=== PATIENT | female | born 1930 ===

== ENCOUNTER 2017-10-25 16:08 | Inpatient (IN) | payer MEDICARE, MEDICAID ==
[2017-10-25 16:13] VITALS: BMI 21.4
--- NOTE | 2017-10-25 16:36 | ED PDOC ---
Arrival/HPI - General Time Seen by Provider: 10/25/17 16:13 - History of Present Illness Narrative History of Present Illness (Text): 10/25/17 16:35 Patient is an 87 y/o F with hx of arthritis, [place], pacemaker, on coumadin, presenting with body pain and abdominal pain. Daughter reports that patient always has chronic pain due to arthritis, but it worsened today, making her unable to walk to her PMD appt for INR check so she called 911. Reports that patient is scheduled to get enrolled in pacemaker program tomorrow. PMD: Dr. Noe Director Hris: Dr. Ambrose Family/Social History Family/Social History: No Known Family HX Allergies/Home Meds Allergies/Adverse Reactions: Allergies No Known Allergies Allergy (Verified 10/25/17 16:13) Home Medications: Home Meds Medication Instructions Recorded Confirmed Albuterol Sulfate [Proair Hfa] 0.09 mg IH Q4 PRN 10/25/17 10/25/17 Atorvastatin [Lipitor] 40 mg PO DIN 10/25/17 10/25/17 Clopidogrel [Plavix] 75 mg PO DAILY 10/25/17 10/25/17 Diltiazem HCl [Cartia Xt] 240 mg PO DAILY 10/25/17 10/25/17 Metoprolol Succinate [Toprol XL] 100 mg PO DAILY 10/25/17 10/25/17 Pantoprazole [Protonix] 40 mg PO DAILY 10/25/17 10/25/17 Ramipril [Altace] 2.5 mg PO DAILY 10/25/17 10/25/17 Warfarin [Coumadin] 2 mg PO 1800 10/25/17 10/25/17 Review of Systems - Physician Review All systems were reviewed & negative as marked: Yes - Review of Systems Constitutional: Fatigue Respiratory: absent: SOB, Cough, Sputum, Wheezing Cardiovascular: Chest Pain (R sided rib pain). absent: Palpitations, Orthopnea Gastrointestinal: Abdominal Pain. absent: Nausea, Vomiting Genitourinary Female: absent: Dysuria Musculoskeletal: Arthralgias Physical Exam Vital Signs Temp Pulse Resp BP Pulse Ox 10/25/17 20:19 78 18 140/86 99 10/25/17 16:22 98.5 F 71 18 136/86 98 Temperature: Afebrile Blood Pressure: Normal Pulse: Regular Respiratory Rate: Normal Appearance: Positive for: Well-Appearing, Non-Toxic, Comfortable Pain Distress: None Mental Status: Positive for: Alert and Oriented X 3 - Systems Exam Head: Present: Atraumatic, Normocephalic Pupils: Present: PERRL Mouth: Present: Moist Mucous Membranes Neck: Present: Normal Range of Motion Respiratory/Chest: Present: Clear to Auscultation, Good Air Exchange, Tender to Palpation (R ribs). No: Respiratory Distress Cardiovascular: Present: Regular Rate and Rhythm, Normal S1, S2. No: Murmurs Abdomen: Present: Tenderness (R side) Upper Extremity: Present: Normal Inspection Lower Extremity: Present: Normal Inspection, Other (moving extremities x 4) Psychiatric: Present: Alert, Oriented x 3 Medical Decision Making ED Course and Treatment: 10/25/17 16:38 EKG shows paced rhythm at 74bpm 10/25/17 19:18 Radiology called and reports that patient has pelvic mass with hypodensities in liver, concerning for cancer with metastaiss. Unable to ambulate due to generalized fatigue. Will admit to [facility]. Resident aware 10/25/17 19:25 CT chest, abdomen, and pelvis with IV contrast Indication: R chest wall pain, abdominal pain Technique: Contiguous axial images of the chest, abdomen, and pelvis. Coronal and Sagittal reformats generated and reviewed. This CT exam was performed using 1 or more of the following dose reduction techniques: Automated exposure control, adjustment of the MAA and/or kV according to patient size, and/or use of iterative reconstruction technique. Oral contrast was administered. 100 cc omnipaque 350 mg injected. Radiation dose: Total exam DLP = 504.57 MGy-cm. Comparison: None available Findings: Visualized portions of the inferior thyroid gland appear unremarkable. The mediastinal and hilar vascular structures appear within normal limits. Cardiomegaly. Dense coronary artery calcifications. Dual lead left-sided pacemaker. Small right pleural effusion with associated compressive hyperdensity noted of unclear significance. No pneumothorax. Punctate right lower lobe calcified granuloma. Heterogeneous hepatic parenchyma innumerable hepatic hypodense masses worrisome for metastases. Cholecystectomy. Mild bilateral adrenal gland nodular hypertrophy. The spleen appears unremarkable. The kidneys enhance symmetrically. No evidence of hydronephrosis or obstructing calculus. Bilateral renal atrophy and scarring. The stomach is nondistended. The bowel loops appear within normal limits of caliber without evidence of intestinal obstruction. There is no definite free air. Moderate to severe diffuse constipation. The appendix appears within normal limits of caliber. No secondary signs of acute appendicitis. 7.1 x 5.1 cm left pelvic cystic lesion with associated 6 mm calcification ; ovarian cystic neoplasm is not excluded. Uterus is present and appears atrophic. The urinary bladder appears unremarkable. There is decreased mineralization of the bones, most likely representing osteoporosis. Rarely, underlying metabolic bone disease or infiltrative lesions can also have this appearance. Degenerative changes. T9 compression fracture deformity, age indeterminate. Impression: Small right pleural effusion with associated compressive appearing hyperdensity noted of unclear significance. Heterogeneous hepatic parenchyma innumerable hepatic hypodense masses worrisome for metastases. Moderate to severe diffuse constipation. 7.1 x 5.1 cm left pelvic cystic lesion with associated 6 mm calcification ; ovarian cystic neoplasm is not excluded. There is decreased mineralization of the bones, most likely representing osteoporosis. Rarely, underlying metabolic bone disease or infiltrative lesions can also have this appearance. Osseous metastases are not excluded ; correlate clinically and suggest nuclear medicine bone scan if indicated. T9 compression fracture deformity, age indeterminate. Additional findings as above. Findings discussed with Dr. Lala on 10/25/17 at 7:09 p.m. - Lab Interpretations Lab Results: 10/25/17 17:20 10/25/17 17:20 Lab Results 10/25/17 17:20: PT 37.3 H, INR 3.34 H, APTT 44.5 H 10/25/17 17:20: Sodium 140, Potassium 3.8, Chloride 102, Carbon Dioxide 29, Anion Gap 13, BUN 30 H, Creatinine 0.9, Est GFR ( Amer) > 60, Est GFR ( Non-Af Amer) 59, Random Glucose 100, Calcium 9.8, Phosphorus 4.0, Magnesium 1.9 , Total Bilirubin 0.6, AST 38 H, ALT 33, Alkaline Phosphatase 165 H, Troponin I < 0.01, Total Protein 7.9, Albumin 3.7, Globulin 4.2, Albumin/Globulin Ratio 0.9 L, Lipase 344 H 10/25/17 17:20: WBC 11.6 H, RBC 3.42 L, Hgb 10.1 L, Hct 31.9 L, MCV 93.3, MCH 29.5, MCHC 31.7, RDW 15.2 H, Plt Count 256, MPV 9.8, Gran % 74.5 H, Lymph % ( Auto) 13.1 L, [place] % (Auto) 11.8 H, Eos % (Auto) 0.5 L, Baso % (Auto) 0.1, Gran # 8.63 H, Lymph # 1.5, [place] # 1.4 H, Eos # 0.1, Baso # 0.01 10/25/17 16:46: POC Glucose (mg/dL) 103 I have reviewed the lab results: Yes - RAD Interpretation Radiology Orders: 10/25/17 16:33 CHEST PORTABLE [RAD] Stat 10/25/17 17:59 CHEST,ABD,PEL W/IV CONT ONLY [CT] Stat - Medication Orders Current Medication Orders: Albuterol Sulfate (Albuterol 0.5% Inhal Sonia (2.5 Mg/0.5 Ml) Ud) 2.5 mg IH Q4H PRN PRN Reason: Shortness of Breath Atorvastatin Calcium (Lipitor) 40 mg PO DIN PRATIK Clopidogrel Bisulfate (Plavix) 75 mg PO DAILY PRATIK Diltiazem HCl (Cardizem Cd) 240 mg PO DAILY PRATIK Metoprolol Succinate (Toprol Xl) 100 mg PO DAILY PRATIK Ondansetron HCl (Zofran Inj) 4 mg IVP STAT PRN PRN Reason: Nausea/Vomiting Pantoprazole Sodium (Protonix Ec Tab) 40 mg PO DAILY PRATIK Ramipril (Altace) 2.5 mg PO DAILY PRATIK Warfarin Sodium (Coumadin) 1 mg PO 1800 PRATIK PRN Reason: Protocol Discontinued Medications Docusate Sodium (Colace) 100 mg PO STAT PRATIK Stop: 10/25/17 21:01 Morphine Sulfate (Morphine) 4 mg IVP STAT STA Stop: 10/25/17 16:38 Last Admin: 10/25/17 17:17 Dose: 4 mg MAR Pain Assessment Document 10/25/17 17:17 [facility] (Rec: 10/25/17 17:17 [id number] Pain Reassessment Is this a pain reassessment? No IVP Administration Document 10/25/17 17:17 [facility] (Rec: 10/25/17 17:17 [id number] Charges for Administration # of IVP Administrations 1 Re-Assess: MAR Pain Assessment Document 10/25/17 18:17 [facility] (Rec: 10/25/17 19:08 [facility]-[id number]) Pain Reassessment Is this a pain reassessment? Yes Sleep Is patient sleeping during reassessment? No Presence of Pain Presence of Pain Yes Disposition/Present on Arrival - Present on Arrival Any Indicators Present on Arrival: No - Disposition Have Diagnosis and Disposition been Completed?: Yes Diagnosis: Pelvic mass, Intractable pain, Fatigue Disposition: HOSPITALIZED Disposition Time: 19:26 Patient Plan: Admission Patient Problems: Current Active Problems Problem Status Onset Fatigue Acute Intractable pain Acute Pelvic mass Acute Condition: FAIR
[2017-10-25] MEDS ORDERED: Morphine 4 mg/ml ISec IVP STA (16:37)
[2017-10-25 17:44] LABS: BASO # 0.01 K/mm3 (0.0-2.0); BASO % 0.1 % (0.0-3.0); EOS # 0.1 (0.0-0.7); EOS % 0.5 % (1.5-5.0); GRAN # 8.63 (1.4-6.5); GRAN % 74.5 % (50.0-68.0); HEMATOCRIT 31.9 % (36.0-48.0); LYMPH # 1.5 (1.2-3.4); LYMPH % 13.1 % (22.0-35.0); MEAN CELL VOLUME 93.3 fl (80.0-105.0); MEAN CORPUSCULAR HEMOGLOBIN 29.5 pg (25.0-35.0); MEAN CORPUSCULAR HGB CONC 31.7 g/dl (31.0-37.0); MEAN PLATELET VOLUME 9.8 fl (7.0-11.0); MONO # 1.4 (0.1-0.6); MONO % 11.8 % (1.0-6.0); RED CELL DISTRIBUTION WIDTH 15.2 % (11.5-14.5); WHITE BLOOD COUNT 11.6 10^3/ul (4.5-11.0)
[2017-10-25 17:47] LABS: ALB/GLOB RATIO 0.9 (1.1-1.8); ALKALINE PHOSPHATASE 165 U/L (38-126); ALT/SGPT 33 U/L (7-56); AST/SGOT 38 U/L (14-36); BILIRUBIN,TOTAL 0.6 mg/dL (0.2-1.3); BLOOD UREA NITROGEN 30 mg/dL (7-21); CALCIUM 9.8 mg/dL (8.4-10.5); CARBON DIOXIDE 29 mmol/L (21-33); CHLORIDE 102 mmol/L (98-107); GFR AFRICAN-AMERICAN > 60; GLUCOSE,RANDOM 100 mg/dL (70-110); INR 3.34 (0.93-1.08); LIPASE 344 U/L (23-300); MAGNESIUM 1.9 mg/dL (1.7-2.2); PARTIAL THROMBOPLASTIN TIME 44.5 Seconds (25.1-36.5); POTASSIUM 3.8 mmol/L (3.6-5.0); SODIUM 140 mmol/L (132-148); TOTAL PROTEIN 7.9 g/dL (5.8-8.3)
[2017-10-25 17:57] LABS: TROPONIN I < 0.01 ng/mL
--- NOTE | 2017-10-25 18:00 | CARD ---
APPROVED REPORT EKG Measurement Heart [id number] <Conclusion> Electronic ventricular pacemaker
[2017-10-25] MEDS ORDERED: Iohexol 350 MG/100 ML VIAL ONE (18:09)
--- NOTE | 2017-10-25 19:24 | CT ---
CT chest, abdomen, and pelvis with IV contrast Indication: R chest wall pain, abdominal pain Technique: Contiguous axial images of the chest, abdomen, and pelvis. Coronal and Sagittal reformats generated and reviewed. This CT exam was performed using 1 or more of the following dose reduction techniques: Automated exposure control, adjustment of the MAA and/or kV according to patient size, and/or use of iterative reconstruction technique. Oral contrast was administered. 100 cc omnipaque 350 mg injected. Radiation dose: Total exam DLP = 504.57 MGy-cm. Comparison: None available Findings: Visualized portions of the inferior thyroid gland appear unremarkable. The mediastinal and hilar vascular structures appear within normal limits. Cardiomegaly. Dense coronary artery calcifications. Dual lead left-sided pacemaker. Small right pleural effusion with associated compressive hyperdensity noted of unclear significance. No pneumothorax. Punctate right lower lobe calcified granuloma. Heterogeneous hepatic parenchyma innumerable hepatic hypodense masses worrisome for metastases. Cholecystectomy. Mild bilateral adrenal gland nodular hypertrophy. The spleen appears unremarkable. The kidneys enhance symmetrically. No evidence of hydronephrosis or obstructing calculus. Bilateral renal atrophy and scarring. The stomach is nondistended. The bowel loops appear within normal limits of caliber without evidence of intestinal obstruction. There is no definite free air. Moderate to severe diffuse constipation. The appendix appears within normal limits of caliber. No secondary signs of acute appendicitis. 7.1 x 5.1 cm left pelvic cystic lesion with associated 6 mm calcification ; ovarian cystic neoplasm is not excluded. Uterus is present and appears atrophic. The urinary bladder appears unremarkable. There is decreased mineralization of the bones, most likely representing osteoporosis. Rarely, underlying metabolic bone disease or infiltrative lesions can also have this appearance. Degenerative changes. T9 compression fracture deformity, age indeterminate. Impression: Small right pleural effusion with associated compressive appearing hyperdensity noted of unclear significance. Heterogeneous hepatic parenchyma innumerable hepatic hypodense masses worrisome for metastases. Moderate to severe diffuse constipation. 7.1 x 5.1 cm left pelvic cystic lesion with associated 6 mm calcification ; ovarian cystic neoplasm is not excluded. There is decreased mineralization of the bones, most likely representing osteoporosis. Rarely, underlying metabolic bone disease or infiltrative lesions can also have this appearance. Osseous metastases are not excluded ; correlate clinically and suggest nuclear medicine bone scan if indicated. T9 compression fracture deformity, age indeterminate. Additional findings as above. Findings discussed with Dr. Lala on 10/25/17 at 7:09 p.m.
[2017-10-25] MEDS ORDERED: Albuterol 0.5% Inhal Sol (2.5 mg/0.5 ml) UD IH PRN (20:07)
--- NOTE | 2017-10-25 20:18 | CP.PCM.HP ---
History of Present Illness - History of Present Illness History of Present Illness: CC: Weakness, fatigue HPI: Patient is an 87 year old female with past medical history of arthritis, [place] , CAD, pacemaker, on anticoagulation with coumadin who presents via ambulance for generalized weakness and fatigue. Per chart review and handoff patient had worsening of her chronic pain secondary to her chronic arthritis that inhibited her ability to walk to her PMD office visit for her INR check. Patient called [address] [facility] [place]. Patient is noted to be poor historian with tangential speech and non specific answers regarding questioning and repeat questioning. Patient reports for the past year she has been experiencing body pains most notably hip and lower/mid back pain. Patient reports poor appetite without nausea and vomiting for some time now. Along with her general weakness and fatigue the patient reports small irregular bowel movements. Patient reports regular bowel movement the AM of presentation. Patient denies shortness of breath, sharp abdominal pain, diarrhea, nausea, vomiting, fever, chills. PMH: Arthritis, [place], CAD, Pacemaker PSH: None SocHx: Tobacco: Former light smoker for few years, ETOH: denies, ID: Denies ALL: NKDA Meds: See JAN PMD: Dr. Noe Cardiology: Dr. Woody Ambrose Present on Admission - Present on Admission Any Indicators Present on Admission: No Review of Systems - Review of Systems Review of Systems: 12 point ROS benign otherwise mentioned in HPI Past Patient History - Past Social History Smoking Status: Former Smoker Alcohol: None Drugs: Denies - CARDIAC Hx Cardiac Disorders: Yes Hx Hypertension: Yes Hx Pacemaker: Yes - PULMONARY Hx Respiratory Disorders: No - PSYCHIATRIC Hx Substance Use: No - SURGICAL HISTORY Hx Surgeries: Yes Hx Coronary Stent: Yes Other/Comment: pacemaker - ANESTHESIA Hx Anesthesia: Yes Hx Anesthesia Reactions: No Hx Malignant Hyperthermia: No Meds Allergies/Adverse Reactions: Allergies Allergy/AdvReac Type Severity Reaction Status Date / Time No Known Allergies Allergy Verified 10/25/17 16:13 Physical Exam - Constitutional Appears: No Acute Distress - Head Exam Head Exam: ATRAUMATIC, NORMAL INSPECTION, NORMOCEPHALIC - Eye Exam Eye Exam: EOMI, PERRL. absent: Conjunctival injection, Scleral icterus - ENT Exam ENT Exam: Mucous Membranes Dry - Respiratory Exam Respiratory Exam: Clear to Auscultation Bilateral, NORMAL BREATHING PATTERN. absent: Rales, Rhonchi, Wheezes - Cardiovascular Exam Cardiovascular Exam: REGULAR RHYTHM, +S1, +S2 - GI/Abdominal Exam GI & Abdominal Exam: Hypoactive Bowel Sounds, Soft, Tenderness (RUQ). absent: Firm, Guarding - Extremities Exam Extremities exam: Positive for: pedal pulses present. Negative for: calf tenderness, pedal edema - Neurological Exam Neurological exam: Alert, Oriented x3 Additional comments: motor and sensory grossly intact - Psychiatric Exam Psychiatric exam: Normal Affect, Normal Mood Results - Vital Signs Recent Vital Signs: Last Vital Signs Temp 98.5 F 10/25/17 16:22 Pulse 71 10/25/17 16:22 Resp 18 10/25/17 16:22 BP 136/86 10/25/17 16:22 Pulse Ox 98 10/25/17 16:22 - Labs Result Diagrams: 10/26/17 06:30 10/26/17 06:30 Assessment & Plan - Assessment and Plan (Free Text) Assessment: Patient is an 87 year old female with past medical history of arthritis, [place], CAD , pacemaker, on anticoagulation with coumadin who presents via ambulance for generalized weakness and fatigue. Patient found to have pelvic mass with possible mets on Abdominal CT in ED. Will admit for further work up and evaluation. Plan: Abdominal Pain - Etiology: Constipation vs. mets from suspected pelvic with suspicion for neoplasm - mild leukocytosis, afebrile, VSS - Holding off antibiotics at this time - Abd CT findings: Pelvic mass with hypodensities in liver, concerning for cancer with metastasis, see report for full detail - Heme/Onc: Dr. Goel - PT/OT for difficulty with ambulation secondary to pain - Cardiac healthy diet - Miralax - Lipase 344 - Zofran prn Elevated INR - INR 3.34 - Repeat INR for AM - Patient reports taking coumadin 2mg for past few years after pacemaker placement - Efforts made to contact family regarding medical history - Will reduce Coumadin 1mg for tomorrow - Heme on board Anemia, Normocytic - H//H: 10.1/31.9 - Iron panel - VB12, Folate - CBC - Monitor Hx CAD - Plavix - Lipitor Hx of HTN -Metoprolol - Diltiazem GI ppx: Protonix DVT ppx: Theraputic INR, SCDs Case reviewed and discussed with attending - Date & Time Date: 10/25/17 Time: 20:37
[2017-10-26 07:20] LABS: BASO # 0.02 K/mm3 (0.0-2.0); BASO % 0.2 % (0.0-3.0); EOS # 0.1 (0.0-0.7); EOS % 0.6 % (1.5-5.0); GRAN # 8.25 (1.4-6.5); GRAN % 76.3 % (50.0-68.0); HEMATOCRIT 31.3 % (36.0-48.0); LYMPH # 1.3 (1.2-3.4); MEAN CELL VOLUME 93.7 fl (80.0-105.0); MEAN PLATELET VOLUME 9.6 fl (7.0-11.0); MONO # 1.2 (0.1-0.6); MONO % 10.9 % (1.0-6.0); RED CELL DISTRIBUTION WIDTH 15.4 % (11.5-14.5); WHITE BLOOD COUNT 10.8 10^3/ul (4.5-11.0)
[2017-10-26 07:35] LABS: IRON 39 ug/dL (45-180)
--- NOTE | 2017-10-26 07:55 | RAD ---
HISTORY: chest pain COMPARISON: No prior. FINDINGS: LUNGS: No active pulmonary disease. PLEURA: No significant pleural effusion identified, no pneumothorax apparent. CARDIOVASCULAR: Normal. OSSEOUS STRUCTURES: No significant abnormalities. VISUALIZED UPPER ABDOMEN: Normal. OTHER FINDINGS: Dual lead pacemaker IMPRESSION: No active disease.
[2017-10-26 08:00] LABS: ALB/GLOB RATIO 0.9 (1.1-1.8); ALKALINE PHOSPHATASE 144 U/L (38-126); ALT/SGPT 33 U/L (7-56); AST/SGOT 50 U/L (14-36); BILIRUBIN,TOTAL 0.4 mg/dL (0.2-1.3); BLOOD UREA NITROGEN 25 mg/dL (7-21); CARBON DIOXIDE 31 mmol/L (21-33); CHLORIDE 100 mmol/L (98-107); GFR AFRICAN-AMERICAN > 60; GLUCOSE,RANDOM 94 mg/dL (70-110); POTASSIUM 4.1 mmol/L (3.6-5.0); SODIUM 140 mmol/L (132-148); TOTAL PROTEIN 7.6 g/dL (5.8-8.3)
[2017-10-26 08:12] LABS: INR 2.74 (0.93-1.08); PARTIAL THROMBOPLASTIN TIME 38.5 Seconds (25.1-36.5)
[2017-10-26] MEDS ORDERED: POLYETHYLENE GLYCOL 3350 17 GM/Dose PACKET PO SCH (10:00)
[2017-10-26] MEDS: Pantoprazole 40 mg EC Tab PO SCH (10:33)
[2017-10-26] MEDS: Metoprolol Succinate 100 mg XL Tab PO SCH (10:33)
[2017-10-26] MEDS: diltiaZEM 240 mg/24 Hours CD Cap PO SCH (10:33)
[2017-10-26] MEDS ORDERED: Phytonadione 10 mg/ml Inj (Adult) SC ONE (11:08)
--- NOTE | 2017-10-26 13:13 | CON ---
DATE: 10/26/2017 REASON FOR CONSULT: Suspected malignancy, multiple liver nodules as well as an ovarian mass. HISTORY OF PRESENT ILLNESS: The patient is an 87-year-old female with past medical history significant for history of arthritis, [place], coronary artery disease, pacemaker placement and on anticoagulation who presented to the emergency room with complaints of generalized weakness and fatigue. She also has been having more abdominal pain and back pain, which she has been experiencing for the last several months and it has been worsening. Her appetite is also decreased. She also thinks she has lost some weight, but unable to quantify her much. She denies any diarrhea, constipation or any other GI symptoms. She has no prior history of any malignancy. She denies any fever, chills or night sweats as well. SOCIAL HISTORY: Negative for any smoking. No alcohol use or drug abuse. FAMILY HISTORY: Noncontributory. ALLERGIES: SHE HAS NO KNOWN ALLERGIES. MEDICATIONS: As per the MAR. REVIEW OF SYSTEMS: As per the HPI. PHYSICAL EXAMINATION: VITAL SIGNS: Reveal a temperature of 97.6, pulse of 87, respiratory rate of 20, and a blood pressure of 162/73. GENERAL: The patient is a elderly pleasant female, lying in bed, in no acute distress. HEENT: Head and neck; normocephalic and atraumatic. Eyes; pupils equal, round, reactive to light and accommodation. Extraocular muscles are intact. There is pallor. No icterus is noted. NECK: Supple with no adenopathy. No JVD. No thyromegaly. LUNGS: Clear to auscultation bilaterally with no rales or rhonchi. CARDIOVASCULAR: S1, S2 is heard. ABDOMEN: Positive tenderness, diffuse. She does have palpable ascites. There is a large left pelvic cystic lesion that is palpable. EXTREMITIES: There is no edema. LABORATORY DATA: Reveal anemia with a hemoglobin 9.7. She does have a large pelvic mass on the CT, 7.5 x 5.1 cm on the left side. She also has multiple hypodense masses in her liver. There is also [id number] constipation, T9 compression fracture is also noted. 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 Check CA-125, CEA. We will arrange for CT-guided liver biopsy with Dr. Woody Blanco. Also, we will discussed with the patient's family regarding suspected diagnosis and further treatment plan based on final pathology. Thank you for the consult. We will follow. Shasta Quintero MD
[2017-10-26 13:29] LABS: FOLATE > 20.0 ng/mL
--- NOTE | 2017-10-26 14:10 | CP.PCM.PN ---
Subjective - Date & Time of Evaluation Date of Evaluation: 10/26/17 Time of Evaluation: 07:30 - Subjective Subjective: Patient seen and examined at bedside. No acute events reported overnight. Patient reports continued abdominal and back discomfort. Patient states back pain and weakness are chronic issues. Patient continues to be limited historian with limited insight on her medical conditions. Patient denies shortness of breath, stabbing chest pain/abdominal pain, nausea, vomiting, fever, chills. Objective - Vital Signs/Intake and Output Vital Signs (last 24 hours): Temp Pulse Resp BP Pulse Ox 97.6 F 87 21 162/74 H 95 10/26/17 07:30 10/26/17 10:33 10/26/17 07:30 10/26/17 10:33 10/26/17 07:30 Intake and Output: 10/26/17 10/26/17 06:59 18:59 Intake Total 240 Output Total 200 Balance 40 - Medications Medications: Current Medications Albuterol Sulfate (Albuterol 0.5% Inhal Sonia (2.5 Mg/0.5 Ml) Ud) 2.5 mg IH Q4H PRN PRN Reason: Shortness of Breath Atorvastatin Calcium (Lipitor) 40 mg PO DIN PRATIK Diltiazem HCl (Cardizem Cd) 240 mg PO DAILY [facility] Last Admin: 10/26/17 10:33 Dose: 240 mg Sodium Chloride (Sodium Chloride 0.9%) 1,000 mls @ 100 mls/hr IV .Q10H [facility] Metoprolol Succinate (Toprol Xl) 100 mg PO DAILY [facility] Last Admin: 10/26/17 10:33 Dose: 100 mg Ondansetron HCl (Zofran Inj) 4 mg IVP STAT PRN PRN Reason: Nausea/Vomiting Pantoprazole Sodium (Protonix Ec Tab) 40 mg PO DAILY [facility] Last Admin: 10/26/17 10:33 Dose: 40 mg Phytonadione (Vitamin K Inj) 10 mg SC ONCE ONE Stop: 10/27/17 08:01 Polyethylene Glycol (Miralax) 17 gm PO BID PRATIK Ramipril (Altace) 2.5 mg PO DAILY [facility] Last Admin: 10/26/17 10:32 Dose: 2.5 mg Trazodone HCl (Desyrel) 50 mg PO HS [facility] Warfarin Sodium (Coumadin) 1 mg PO 1800 PRATIK PRN Reason: Protocol - Labs Labs: 10/26/17 06:30 10/26/17 06:30 PT 30.8 SECONDS (9.4-12.5) H 10/26/17 06:30 INR 2.74 (0.93-1.08) H 10/26/17 06:30 APTT 38.5 Seconds (25.1-36.5) H 10/26/17 06:30 - Constitutional Appears: Non-toxic, No Acute Distress - Head Exam Head Exam: ATRAUMATIC, NORMAL INSPECTION, NORMOCEPHALIC - Eye Exam Eye Exam: EOMI, PERRL - ENT Exam ENT Exam: Mucous Membranes Moist - Respiratory Exam Respiratory Exam: NORMAL BREATHING PATTERN Assessment and Plan - Assessment and Plan (Free Text) Assessment: Patient is an 87 year old female with past medical history of arthritis, [place], CAD , pacemaker, on anticoagulation with coumadin who presents via ambulance for generalized weakness and fatigue. Patient found to have pelvic mass with possible mets on Abdominal CT in ED. Will admit for further work up and evaluation. Plan: Abdominal Pain - Etiology: Constipation vs. mets from suspected ovarian malignancy - WBC nml, afebrile, VSS - Abd CT findings: Pelvic mass with hypodensities in liver, concerning for cancer with metastasis, see report for full detail - Heme/Onc: Dr. Goel - check CA 125, CEA - CT guided biopsy with Dr. Woody Blanco - discussion with family regarding suspected dx - IR consult with Dr. Woody Blanco, appreciate recs - [employer] consult with Dr. 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 Sorensen consulted, appreciate recs - PT/OT for difficulty with ambulation secondary to pain Compression fracture T9 - CT/ABD showing compression fracture T9 - Pain distribution related to findings on abd/pelvis CT - Bone scan - full for osteoporosis, compression fracture at T9 Atrial Fibrillation - INR 1.66 - Repeat INR - Holding coumadin for potential procedures per Cardio - Heme on board Anemia, Normocytic - Likely anemia of chronic disease - Vb12 wnl, Folate wnl Hx CAD - Holding plavix at this time - Lipitor Hx of HTN - Metoprolol - Diltiazem Hx of GERD - Protonix - monitor GI ppx: Protonix DVT ppx: Theraputic INR, SCDs Case reviewed and discussed with attending
[2017-10-26] MEDS: POLYETHYLENE GLYCOL 3350 17 GM/Dose PACKET PO SCH (17:06)
[2017-10-26] MEDS: Sodium Chloride 0.9% 1,000 ML IV SCH ×2 (17:06→21:55)
--- NOTE | 2017-10-27 00:26 | CON ---
DATE: 10/26/2017 CARDIOLOGY FOLLOWUP HISTORY: The patient is a 87-year-old woman who presented with abdominal pain and weakness. The patient's weakness continued until she was unable to walk. PAST MEDICAL HISTORY: The patient's past medical history includes a history of pacemaker. She has had multivessel PTCA and stent in the past, the last one was 2008. She also suffers from hypercholesterolemia. SOCIAL HISTORY: The patient does not smoke. REVIEW OF SYSTEMS: Review of systems is dominated by diffuse weakness. No chest pain noted. PHYSICAL EXAMINATION: VITAL SIGNS: Blood pressure 162/74, heart rate in the 80s. NECK: Negative JVD. LUNGS: Decreased breath sounds. HEART: With S1, S2. EXTREMITIES: Without edema. LABORATORY DATA: BUN and creatinine are unremarkable. Troponin is negative x1. The hemoglobin is 9.7. IMAGING: CT scan of the abdomen results are noted. IMPRESSION: 1. Diffuse weakness. 2. Marked anemia. 3. History of percutaneous transluminal coronary angioplasty and stent. 4. History of pacemaker. 5. Abnormalities on CT scan of liver, suspicious for carcinoma. Given these findings, the patient's INR is 2.74 which she has been treated for her atrial fibrillation. We will need to hold her Coumadin in preparation for potential biopsy. Woody Ambrose MD
[2017-10-27] MEDS: Sodium Chloride 0.9% 1,000 ML IV SCH (05:38)
[2017-10-27 06:21] LABS: BASO # 0.02 K/mm3 (0.0-2.0); BASO % 0.2 % (0.0-3.0); EOS # 0.1 (0.0-0.7); EOS % 0.8 % (1.5-5.0); GRAN # 7.87 (1.4-6.5); GRAN % 75.9 % (50.0-68.0); HEMATOCRIT 30.8 % (36.0-48.0); LYMPH # 1.3 (1.2-3.4); LYMPH % 12.2 % (22.0-35.0); MEAN CELL VOLUME 93.9 fl (80.0-105.0); MEAN CORPUSCULAR HEMOGLOBIN 29.6 pg (25.0-35.0); MEAN CORPUSCULAR HGB CONC 31.5 g/dl (31.0-37.0); MEAN PLATELET VOLUME 9.4 fl (7.0-11.0); MONO # 1.1 (0.1-0.6); MONO % 10.9 % (1.0-6.0); RED CELL DISTRIBUTION WIDTH 15.2 % (11.5-14.5); WHITE BLOOD COUNT 10.4 10^3/ul (4.5-11.0)
[2017-10-27 07:01] LABS: INR 1.66 (0.93-1.08)
[2017-10-27 07:25] LABS: ALB/GLOB RATIO 0.8 (1.1-1.8); ALKALINE PHOSPHATASE 139 U/L (38-126); ALT/SGPT 25 U/L (7-56); AST/SGOT 42 U/L (14-36); BILIRUBIN,TOTAL 0.7 mg/dL (0.2-1.3); BLOOD UREA NITROGEN 23 mg/dL (7-21); CALCIUM 9.7 mg/dL (8.4-10.5); CARBON DIOXIDE 28 mmol/L (21-33); CHLORIDE 101 mmol/L (98-107); GFR AFRICAN-AMERICAN > 60; GLUCOSE,RANDOM 107 mg/dL (70-110); POTASSIUM 4.4 mmol/L (3.6-5.0); SODIUM 137 mmol/L (132-148); TOTAL PROTEIN 7.5 g/dL (5.8-8.3)
[2017-10-27] MEDS ORDERED: Phytonadione 10 mg/ml Inj (Adult) SC ONE (08:00)
[2017-10-27] MEDS: Pantoprazole 40 mg EC Tab PO SCH ×2 (08:04→10:00)
[2017-10-27] MEDS: POLYETHYLENE GLYCOL 3350 17 GM/Dose PACKET PO SCH ×3 (09:02→18:16)
[2017-10-27] MEDS: diltiaZEM 240 mg/24 Hours CD Cap PO SCH (09:03)
[2017-10-27] MEDS: Metoprolol Succinate 100 mg XL Tab PO SCH (09:09)
--- NOTE | 2017-10-27 11:53 | CP.PCM.PN ---
Subjective - Date & Time of Evaluation Date of Evaluation: 10/27/17 Time of Evaluation: 09:30 - Subjective Subjective: PGY [address] WEBER/DR. WILL Patient seen and evaluated this AM. No acute events overnight. Patient reports continued mild abdominal discomfort. Patient denies chest pain, shortness of breath, n/v/f/c. Patient endorses constipation without bm for past 2 days. Patient reports chronic issue with bowel movement. patient awaiting further work up for ovarian/pelvic mass. Objective - Vital Signs/Intake and Output Vital Signs (last 24 hours): Temp Pulse Resp BP Pulse Ox 98.2 F 80 20 130/85 97 10/27/17 08:00 10/27/17 09:09 10/27/17 08:00 10/27/17 09:09 10/27/17 08:00 Intake and Output: 10/27/17 10/27/17 06:59 18:59 Intake Total 180 Output Total 200 Balance -20 - Medications Medications: Current Medications Albuterol Sulfate (Albuterol 0.5% Inhal Sonia (2.5 Mg/0.5 Ml) Ud) 2.5 mg IH Q4H PRN PRN Reason: Shortness of Breath Atorvastatin Calcium (Lipitor) 40 mg PO DIN [facility] Last Admin: 10/26/17 17:05 Dose: 40 mg Diltiazem HCl (Cardizem Cd) 240 mg PO DAILY [facility] Last Admin: 10/27/17 09:03 Dose: 240 mg Sodium Chloride (Sodium Chloride 0.9%) 1,000 mls @ 100 mls/hr IV .Q10H [facility] Last Admin: 10/27/17 05:38 Dose: Not Given Metoprolol Succinate (Toprol Xl) 100 mg PO DAILY [facility] Last Admin: 10/27/17 09:09 Dose: 100 mg Ondansetron HCl (Zofran Inj) 4 mg IVP STAT PRN PRN Reason: Nausea/Vomiting Pantoprazole Sodium (Protonix Ec Tab) 40 mg PO DAILY [facility] Last Admin: 10/27/17 08:04 Dose: 40 mg Polyethylene Glycol (Miralax) 17 gm PO TID [facility] Ramipril (Altace) 2.5 mg PO DAILY [facility] Last Admin: 10/27/17 09:09 Dose: 2.5 mg Trazodone HCl (Desyrel) 50 mg PO HS [facility] Last Admin: 10/26/17 21:57 Dose: 50 mg - Labs Labs: 10/27/17 06:00 10/27/17 06:00 PT 18.5 SECONDS (9.4-12.5) H 10/27/17 06:00 INR 1.66 (0.93-1.08) H 10/27/17 06:00 APTT 38.5 Seconds (25.1-36.5) H 10/26/17 06:30 - Constitutional Appears: No Acute Distress - Head Exam Head Exam: ATRAUMATIC, NORMAL INSPECTION, NORMOCEPHALIC - Eye Exam Eye Exam: EOMI, PERRL - ENT Exam ENT Exam: Mucous Membranes Moist - Respiratory Exam Respiratory Exam: Clear to Ausculation Bilateral, NORMAL BREATHING PATTERN - Cardiovascular Exam Cardiovascular Exam: REGULAR RHYTHM, +S1, +S2 - GI/Abdominal Exam GI & Abdominal Exam: Soft, Tenderness, Diminished Bowel Sounds. absent: Firm, Guarding - Extremities Exam Extremities Exam: absent: Pedal Edema, Tenderness - Back Exam Back Exam: NORMAL INSPECTION - Neurological Exam Neurological Exam: Alert, Awake, Oriented x3 - Psychiatric Exam Psychiatric exam: Normal Affect, Normal Mood - Skin Skin Exam: Dry, Intact Assessment and Plan - Assessment and Plan (Free Text) Assessment: Patient is an 87 year old female with past medical history of arthritis, [place], CAD , pacemaker, on anticoagulation with coumadin who presents via ambulance for generalized weakness and fatigue. Patient found to have pelvic mass with possible mets on Abdominal CT in ED. Patient admitted for further work up. Plan: Abdominal Pain - Etiology: Constipation vs. mets from suspected ovarian malignancy - Abd CT findings: Pelvic mass with hypodensities in liver, concerning for cancer with metastasis, see report for full detail - Heme/Onc: Dr. Goel - check CA 125 wnl, CEA wnl - CT guided biopsy with Dr. Woody Blanco - discussion with family regarding suspected dx - IR consult with Dr. 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 Sorensen consulted, appreciate recs - PT/OT for difficulty with ambulation secondary to pain - increase miralax for constipation, consider enema Compression fracture T9 - CT/ABD showing compression fracture T9 - Pain distribution related to findings on abd/pelvis CT - Bone scan - full for osteoporosis, compression fracture at T9, scan done today , f/u final report Atrial Fibrillation - Repeat INR - Holding coumadin for potential procedures per Cardio - Heme on board Anemia, Normocytic - Likely anemia of chronic disease - Vb12 wnl, Folate wnl Hx CAD - Holding plavix at this time - Lipitor Hx of HTN - Metoprolol - Diltiazem Hx of GERD - Protonix - monitor GI ppx: Protonix DVT ppx: Theraputic INR, SCDs Case reviewed and discussed with attending
--- NOTE | 2017-10-27 13:09 | PN ---
DATE: 10/27/2017 CARDIOLOGY FOLLOWUP SUBJECTIVE: The patient is comfortable in bed. Her abdominal pain is better. OBJECTIVE: VITAL SIGNS: Blood pressure is 130/61, the heart rate is in the 60s. NECK: Negative JVD. LUNGS: Without rales. HEART: With S1, S2. EXTREMITIES: Without edema. LABORATORIES: Hemoglobin is 9.7. Chemistries are unchanged. IMPRESSION: 1. Abdominal pain. 2. Anemia. 3. Stable angina. 4. History of percutaneous transluminal coronary angioplasty and stent. 5. History of pacemaker placement. PLAN: Given these findings, the patient's cardiac status is stable. Awaiting her GI workup. Woody Ambrose MD
--- NOTE | 2017-10-27 13:24 | CP.PCM.CON ---
<Nadine Cardenas - Last Filed: 10/27/17 13:46> History of Present Illness - History of Present Illness History of Present Illness: Seen and examined at bedside this afternoon, chart reviewed. Slovak speaking, applied researcher at beside, MIGDALIA Adams. Patient is poor historian. History obtained from nmedical staff and medical chart. Request for GI consult is for abdominal pain. HPI: This is an 87 year old female with a PMH of [place], CAD, pacemaker on Coumadin, came to the ER with complaints of fatigue and generalized weakness. Patient c/o of chronic pain unable to ambulate, history of arthritis, usually have blood work for INR, unable to go to PMD office. Patient complains of body aches, back pain and was complaining of abdominal pain as well. At the moment she does not have any abdominal pain, on admission patient had ct scan of abdomen and pelvis , found to have pelvic mass: 7.1x5.1 cm left pelvic cystic lesion w/6mm calcification. ovarian cystic neoplasm cannot be excluded. Moderate constipation , osteoporosis, and hepatic hypodense masses worrisome for metastasis. Patient denies having EGD or colon. Does have poor appetite, no N/V. When constipated may notice blood. Denies anything recent. INR on admission 3, s/p Vitamin K. PMH: Arthritis, Pacemaker, CAD, [place] PSH: denies Family HX: denies Allergies: NKDA MEDS: reviewed as per [facility] Social HX: former tobacco use, denies ETOH/Drugs ROS: systems reviewed with positive findings, see [facility] Past Patient History - Past Social History Smoking Status: Former Smoker Alcohol: None Drugs: Denies - CARDIAC Hx Cardiac Disorders: Yes Hx Hypertension: Yes Hx Pacemaker: Yes - PULMONARY Hx Respiratory Disorders: No - NEUROLOGICAL Hx Neurological Disorder: No - HEENT Other/Comment: hard of hearing - ENDOCRINE/METABOLIC Hx Endocrine Disorders: No - HEMATOLOGICAL/ONCOLOGICAL Hx Blood Disorders: No - MUSCULOSKELETAL/RHEUMATOLOGICAL Hx Arthritis: Yes - GASTROINTESTINAL Hx Gastrointestinal Disorders: No - GENITOURINARY/GYNECOLOGICAL Hx Genitourinary Disorders: No - PSYCHIATRIC Hx Substance Use: No - SURGICAL HISTORY Hx Surgeries: Yes Hx Coronary Stent: Yes Other/Comment: pacemaker - ANESTHESIA Hx Anesthesia: Yes Hx Anesthesia Reactions: No Hx Malignant Hyperthermia: No Meds Allergies/Adverse Reactions: Allergies Allergy/AdvReac Type Severity Reaction Status Date / Time No Known Allergies Allergy Verified 10/25/17 16:13 - Medications Medications: Current Medications Albuterol Sulfate (Albuterol 0.5% Inhal Sonia (2.5 Mg/0.5 Ml) Ud) 2.5 mg IH Q4H PRN PRN Reason: Shortness of Breath Atorvastatin Calcium (Lipitor) 40 mg PO DIN [facility] Last Admin: 10/26/17 17:05 Dose: 40 mg Diltiazem HCl (Cardizem Cd) 240 mg PO DAILY [facility] Last Admin: 10/27/17 09:03 Dose: 240 mg Sodium Chloride (Sodium Chloride 0.9%) 1,000 mls @ 100 mls/hr IV .Q10H [facility] Last Admin: 10/27/17 05:38 Dose: Not Given Metoprolol Succinate (Toprol Xl) 100 mg PO DAILY [facility] Last Admin: 10/27/17 09:09 Dose: 100 mg Ondansetron HCl (Zofran Inj) 4 mg IVP STAT PRN PRN Reason: Nausea/Vomiting Pantoprazole Sodium (Protonix Ec Tab) 40 mg PO DAILY [facility] Last Admin: 10/27/17 08:04 Dose: 40 mg Polyethylene Glycol (Miralax) 17 gm PO TID [facility] Ramipril (Altace) 2.5 mg PO DAILY [facility] Last Admin: 10/27/17 09:09 Dose: 2.5 mg Trazodone HCl (Desyrel) 50 mg PO HS [facility] Last Admin: 10/26/17 21:57 Dose: 50 mg Physical Exam - Constitutional Appears: No Acute Distress - Head Exam Head Exam: NORMOCEPHALIC - Eye Exam Eye Exam: Normal appearance. absent: Scleral icterus - ENT Exam ENT Exam: Mucous Membranes Moist - Neck Exam Neck exam: Positive for: Normal Inspection - Respiratory Exam Respiratory Exam: Decreased Breath Sounds, NORMAL BREATHING PATTERN. absent: Respiratory Distress - Cardiovascular Exam Cardiovascular Exam: +S1, +S2 - GI/Abdominal Exam GI & Abdominal Exam: Distended, Hypoactive Bowel Sounds, Soft. absent: Guarding , Rebound, Tenderness - Extremities Exam Extremities exam: Positive for: normal inspection, pedal pulses present. Negative for: calf tenderness, pedal edema - Neurological Exam Neurological exam: Alert, Oriented x3 - Skin Skin Exam: Dry, Warm Results - Vital Signs Recent Vital Signs: Last Vital Signs Temp 98.2 F 10/27/17 08:00 Pulse 80 10/27/17 09:09 Resp 20 10/27/17 08:00 BP 130/85 10/27/17 09:09 Pulse Ox 97 10/27/17 08:00 - Labs Result Diagrams: 10/27/17 06:00 10/27/17 06:00 Labs: Laboratory Results - last 24 hr 10/26/17 10/26/17 10/26/17 06:30 06:30 10:23 WBC RBC Hgb Hct MCV MCH MCHC RDW Plt Count MPV Gran % Lymph % (Auto) Bartholomew % (Auto) Eos % (Auto) Baso % (Auto) Gran # Lymph # Bartholomew # Eos # Baso # PT INR Sodium Potassium Chloride Carbon Dioxide Anion Gap BUN Creatinine Est GFR ( Amer) Est GFR (Non-Af Amer) Random Glucose Calcium Total Bilirubin AST ALT Alkaline Phosphatase Total Protein Albumin Globulin Albumin/Globulin Ratio CA 125 Antigen 16.5 Vitamin B12 329 Folate > 20.0 Procalcitonin 0.08 L 10/27/17 10/27/17 10/27/17 06:00 06:00 06:00 WBC 10.4 RBC 3.28 L Hgb 9.7 L Hct 30.8 L MCV 93.9 MCH 29.6 MCHC 31.5 RDW 15.2 H Plt Count 245 MPV 9.4 Gran % 75.9 H Lymph % (Auto) 12.2 L Bartholomew % (Auto) 10.9 H Eos % (Auto) 0.8 L Baso % (Auto) 0.2 Gran # 7.87 H Lymph # 1.3 Bartholomew # 1.1 H Eos # 0.1 Baso # 0.02 PT 18.5 H INR 1.66 H Sodium 137 Potassium 4.4 Chloride 101 Carbon Dioxide 28 Anion Gap 13 BUN 23 H Creatinine 0.9 Est GFR ( Amer) > 60 Est GFR (Non-Af Amer) 59 Random Glucose 107 Calcium 9.7 Total Bilirubin 0.7 AST 42 H ALT 25 Alkaline Phosphatase 139 H Total Protein 7.5 Albumin 3.4 Globulin 4.1 Albumin/Globulin Ratio 0.8 L CA 125 Antigen Vitamin B12 Folate Procalcitonin Assessment & Plan - Assessment and Plan (Free Text) Assessment: ASSESSMENT: Abdominal Pain Constipation Abnormal CT scan: 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 Seen and discussed w/ Dr. Sorensen. <Ari Sorensen V - Last Filed: 10/27/17 21:04> Meds - Medications Medications: Current Medications Acetaminophen (Tylenol 325mg Tab) 650 mg PO Q4 PRN PRN Reason: Pain, Mild (1-3) Last Admin: 10/27/17 17:12 Dose: 650 mg Albuterol Sulfate (Albuterol 0.5% Inhal Sonia (2.5 Mg/0.5 Ml) Ud) 2.5 mg IH Q4H PRN PRN Reason: Shortness of Breath Atorvastatin Calcium (Lipitor) 40 mg PO DIN [facility] Last Admin: 10/27/17 18:17 Dose: 40 mg Diltiazem HCl (Cardizem Cd) 240 mg PO DAILY [facility] Last Admin: 10/27/17 09:03 Dose: 240 mg Sodium Chloride (Sodium Chloride 0.9%) 1,000 mls @ 100 mls/hr IV .Q10H [facility] Last Admin: 10/27/17 05:38 Dose: Not Given Sodium Chloride (Sodium Chloride 0.45%) 1,000 mls @ 60 mls/hr IV .[id number] [facility] Stop: 10/28/17 08:00 Last Admin: 10/27/17 17:13 Dose: 60 mls/hr Metoprolol Succinate (Toprol Xl) 100 mg PO DAILY [facility] Last Admin: 10/27/17 09:09 Dose: 100 mg Ondansetron HCl (Zofran Inj) 4 mg IVP STAT PRN PRN Reason: Nausea/Vomiting Pantoprazole Sodium (Protonix Ec Tab) 40 mg PO DAILY [facility] Last Admin: 10/27/17 10:00 Dose: Not Given Polyethylene Glycol (Miralax) 17 gm PO TID [facility] Last Admin: 10/27/17 18:16 Dose: 17 gm Ramipril (Altace) 2.5 mg PO DAILY [facility] Last Admin: 10/27/17 09:09 Dose: 2.5 mg Trazodone HCl (Desyrel) 50 mg PO HS [facility] Last Admin: 10/26/17 21:57 Dose: 50 mg Results - Vital Signs Recent Vital Signs: Last Vital Signs Temp 98.4 F 10/27/17 16:45 Pulse 79 10/27/17 18:00 Resp 16 10/27/17 18:00 BP 143/62 10/27/17 18:00 Pulse Ox 95 10/27/17 18:00 - Labs Result Diagrams: 10/27/17 06:00 10/27/17 06:00 Labs: Laboratory Results - last 24 hr 10/27/17 10/27/17 10/27/17 06:00 06:00 06:00 WBC 10.4 RBC 3.28 L Hgb 9.7 L Hct 30.8 L MCV 93.9 MCH 29.6 MCHC 31.5 RDW 15.2 H Plt Count 245 MPV 9.4 Gran % 75.9 H Lymph % (Auto) 12.2 L Bartholomew % (Auto) 10.9 H Eos % (Auto) 0.8 L Baso % (Auto) 0.2 Gran # 7.87 H Lymph # 1.3 Bartholomew # 1.1 H Eos # 0.1 Baso # 0.02 PT 18.5 H INR 1.66 H Sodium 137 Potassium 4.4 Chloride 101 Carbon Dioxide 28 Anion Gap 13 BUN 23 H Creatinine 0.9 Est GFR ( Amer) > 60 Est GFR (Non-Af Amer) 59 Random Glucose 107 Calcium 9.7 Total Bilirubin 0.7 AST 42 H ALT 25 Alkaline Phosphatase 139 H Total Protein 7.5 Albumin 3.4 Globulin 4.1 Albumin/Globulin Ratio 0.8 L Attending/Attestation - Attestation I have personally seen and examined this patient.: Yes I have fully participated in the care of the patient.: Yes I have reviewed all pertinent clinical information: Yes Notes (Text): This is an addendum to GI progress report dictated by Nadine Cardenas APN.The patient was seen and examined earlier. Medical records, lab studies, imagings were reviewed. Last 24 hours events reviewed. Agreed with the above treatment plan as outlined in Nadine Cardenas APN's notes the with the addition of the following Abdomen soft no tenderness fullness present in the lower abdomen softly distended Plan for CT-guided liver biopsy Continue MiraLAX for constipation Thank your much for this to participate in the care of the patient 10/27/17 21:02
--- NOTE | 2017-10-27 14:54 | NM ---
PROCEDURE: Whole Body Bone Scan HISTORY: osteoporosis, compression fracture COMPARISON: 10/25/2017 CT thorax abdomen and pelvis. Summary of findings on the comparison examination: There is decreased mineralization of the bones, most likely representing osteoporosis. Rarely, underlying metabolic bone disease or infiltrative lesions can also have this appearance. Osseous metastases are not excluded ; correlate clinically and suggest nuclear medicine bone scan if indicated. T9 compression fracture deformity, age indeterminate. TECHNIQUE: Following administration of 20.0 miCu of Tc MDP multiplanar whole body images were obtained. FINDINGS: Evidence for bony metastatic disease: None. Degenerative uptake: None. Physiologic uptake: Normal physiologic activity in the kidneys. Other findings: Foci of abnormal increased uptake thoracolumbar spine consistent with findings on recent CT scan. IMPRESSION: Foci of increased uptake mid and lower thoracic spine and lumbar spine consistent with compression fractures age indeterminate.
[2017-10-27] MEDS ORDERED: Midazolam 2 MG/2 ML VIAL ONE (14:56)
[2017-10-27] MEDS ORDERED: Sodium Chloride 0.45% 1,000 ML IV SCH (15:45)
--- NOTE | 2017-10-27 17:13 | CT ---
PROCEDURE: CT guided liver biopsy. HISTORY: Multiple low-attenuation liver lesions. Evaluate for metastatic disease. PHYSICIAN(S): Woody Blanco MD. TECHNIQUE: The relative risks and indications of the procedure were explained to the patient through an line servicer and consent obtained. The patient was placed supine on the CT scanner and preliminary images through the liver obtained. Conscious sedation and monitoring were provided throughout the procedure by a nurse. A small right pleural effusion and multiple attenuation lesions in the right lobe of the liver superiorly.. A right lateral oblique approach was selected and the area prepped and draped in the usual sterile fashion. 1% Xylocaine was used to anesthetize the skin and soft tissues. A 17-gauge guiding needle was advanced into the heterogeneous area in the right lobe superiorly. Its position was confirmed with CT. Using coaxial technique, multiple core biopsies were obtained. The postprocedure images show no evidence of significant hemorrhage. IMPRESSION: 1. CT-guided liver biopsy as described above.
[2017-10-28 07:42] LABS: BASO # 0.02 K/mm3 (0.0-2.0); BASO % 0.2 % (0.0-3.0); EOS % 0.2 % (1.5-5.0); GRAN # 10.13 (1.4-6.5); GRAN % 79.2 % (50.0-68.0); HEMATOCRIT 26.9 % (36.0-48.0); LYMPH # 1.5 (1.2-3.4); LYMPH % 11.3 % (22.0-35.0); MEAN CELL VOLUME 92.8 fl (80.0-105.0); MEAN CORPUSCULAR HEMOGLOBIN 29.3 pg (25.0-35.0); MEAN CORPUSCULAR HGB CONC 31.6 g/dl (31.0-37.0); MEAN PLATELET VOLUME 9.3 fl (7.0-11.0); MONO # 1.2 (0.1-0.6); MONO % 9.1 % (1.0-6.0); WHITE BLOOD COUNT 12.8 10^3/ul (4.5-11.0)
[2017-10-28 07:57] LABS: INR 1.08 (0.93-1.08)
[2017-10-28 08:21] LABS: ALB/GLOB RATIO 0.8 (1.1-1.8); ALKALINE PHOSPHATASE 139 U/L (38-126); ALT/SGPT 29 U/L (7-56); AST/SGOT 47 U/L (14-36); BILIRUBIN,TOTAL 0.8 mg/dL (0.2-1.3); BLOOD UREA NITROGEN 23 mg/dL (7-21); CALCIUM 9.5 mg/dL (8.4-10.5); CARBON DIOXIDE 28 mmol/L (21-33); CHLORIDE 98 mmol/L (98-107); GFR AFRICAN-AMERICAN > 60; GLUCOSE,RANDOM 115 mg/dL (70-110); POTASSIUM 4.2 mmol/L (3.6-5.0); SODIUM 134 mmol/L (132-148); TOTAL PROTEIN 7.4 g/dL (5.8-8.3)
[2017-10-28] MEDS: Pantoprazole 40 mg EC Tab PO SCH (09:33)
[2017-10-28] MEDS: Metoprolol Succinate 100 mg XL Tab PO SCH (09:34)
[2017-10-28] MEDS: POLYETHYLENE GLYCOL 3350 17 GM/Dose PACKET PO SCH ×3 (09:35→18:19)
[2017-10-28] MEDS: diltiaZEM 240 mg/24 Hours CD Cap PO SCH (09:35)
--- NOTE | 2017-10-28 10:59 | CP.PCM.PN ---
Subjective - Date & Time of Evaluation Date of Evaluation: 10/28/17 Time of Evaluation: 07:15 - Subjective Subjective: PGY [address] WILL/DR. WEBER Patient seen and evaluated at bedside. Patient appears more somnolent today than prior. Patient able to participate in interview. Denies chest pain, shob, n /v/f/c. Patient reports abdominal discomfort associated with surgical site. Patient will be awaiting liver biopsy results and will plan to discuss with family upon results. Objective - Vital Signs/Intake and Output Vital Signs (last 24 hours): Temp Pulse Resp BP Pulse Ox 98.6 F 87 20 183/84 H 93 L 10/28/17 08:00 10/28/17 08:00 10/28/17 08:00 10/28/17 09:35 10/28/17 08:00 Intake and Output: 10/28/17 10/28/17 06:59 18:59 Intake Total 120 Output Total 0 Balance 120 - Medications Medications: Current Medications Acetaminophen (Tylenol 325mg Tab) 650 mg PO Q4 PRN PRN Reason: Pain, Mild (1-3) Last Admin: 10/27/17 17:12 Dose: 650 mg Albuterol Sulfate (Albuterol 0.5% Inhal Sonia (2.5 Mg/0.5 Ml) Ud) 2.5 mg IH Q4H PRN PRN Reason: Shortness of Breath Atorvastatin Calcium (Lipitor) 40 mg PO DIN [facility] Last Admin: 10/27/17 18:17 Dose: 40 mg Diltiazem HCl (Cardizem Cd) 240 mg PO DAILY [facility] Last Admin: 10/28/17 09:35 Dose: 240 mg Sodium Chloride (Sodium Chloride 0.9%) 1,000 mls @ 100 mls/hr IV .Q10H [facility] Last Admin: 10/27/17 05:38 Dose: Not Given Metoprolol Succinate (Toprol Xl) 100 mg PO DAILY [facility] Last Admin: 10/28/17 09:34 Dose: 100 mg Ondansetron HCl (Zofran Inj) 4 mg IVP STAT PRN PRN Reason: Nausea/Vomiting Pantoprazole Sodium (Protonix Ec Tab) 40 mg PO DAILY [facility] Last Admin: 10/28/17 09:33 Dose: 40 mg Polyethylene Glycol (Miralax) 17 gm PO TID [facility] Last Admin: 10/28/17 09:35 Dose: 17 gm Ramipril (Altace) 2.5 mg PO DAILY [facility] Last Admin: 10/28/17 09:33 Dose: 2.5 mg Trazodone HCl (Desyrel) 50 mg PO HS [facility] Last Admin: 10/27/17 22:27 Dose: 50 mg - Labs Labs: 10/28/17 06:30 10/28/17 06:30 PT 11.9 SECONDS (9.4-12.5) 10/28/17 06:30 INR 1.08 (0.93-1.08) 10/28/17 06:30 APTT 38.5 Seconds (25.1-36.5) H 10/26/17 06:30 - Constitutional Appears: Non-toxic, No Acute Distress - Head Exam Head Exam: ATRAUMATIC, NORMAL INSPECTION, NORMOCEPHALIC - Eye Exam Eye Exam: EOMI, PERRL - ENT Exam ENT Exam: Mucous Membranes Moist - Respiratory Exam Respiratory Exam: Clear to Ausculation Bilateral, NORMAL BREATHING PATTERN. absent: Rhonchi, Wheezes - Cardiovascular Exam Cardiovascular Exam: REGULAR RHYTHM, +S1, +S2 - GI/Abdominal Exam GI & Abdominal Exam: Distended, Soft, Tenderness (RUQ), Normal Bowel Sounds - Extremities Exam Extremities Exam: absent: Calf Tenderness, Pedal Edema - Neurological Exam Neurological Exam: Alert, Awake Additional comments: motor and sensory grossly intact, able to move all four extremities past midline , obeys simple commands - Psychiatric Exam Psychiatric exam: Normal Mood - Skin Skin Exam: Dry, Normal Color. absent: Rash Assessment and Plan - Assessment and Plan (Free Text) Assessment: Patient is an 87 year old female with past medical history of arthritis, [place], CAD , pacemaker, on anticoagulation with coumadin who presents via ambulance for generalized weakness and fatigue. Patient found to have pelvic mass with possible mets on Abdominal CT in ED. Patient being evaluated for suspected ovarian neoplasm. Plan: Abdominal Pain - Etiology: suspected ovarian malignancy - Abd CT findings: Pelvic mass with hypodensities in liver, concerning for cancer with metastasis, see report for full detail - Heme/Onc: Dr. Goel - check CA 125 wnl, CEA wnl - CT guided biopsy with Dr. Woody Blanco - discussion with family regarding suspected dx - IR consult with Dr. 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 Medina contacted and discussed [id number], wanting to wait on biopsy results, reach out to if needed - GI with Dr. Sorensen consulted, appreciate recs - wants to f/u biopsy result, cont management - PT/OT for difficulty with ambulation secondary to pain - increase miralax for constipation Compression fracture T9 - CT/ABD showing compression fracture T9 - Pain distribution related to findings on abd/pelvis CT - Bone scan - compression fractures thoracic and lumbar Atrial Fibrillation - INR 1.08 today - Holding coumadin per Cardio as of now - Heme on board Anemia, Normocytic - Drop in H/H today, suspect dilutional vs. blood loss from procedure - H/H repeat this PM, will consider ab CT for eval if cont to drop - Likely anemia of chronic disease - Vb12 wnl, Folate wnl Hx CAD - Holding plavix at this time - Lipitor Hx of HTN - Metoprolol - Diltiazem Hx of GERD - Protonix - monitor GI ppx: Protonix DVT ppx: SCDs Case reviewed and discussed with attending
[2017-10-28 12:18] LABS: HEMATOCRIT 25.9 % (36.0-48.0); MEAN CELL VOLUME 92.2 fl (80.0-105.0); MEAN CORPUSCULAR HEMOGLOBIN 29.9 pg (25.0-35.0); MEAN CORPUSCULAR HGB CONC 32.4 g/dl (31.0-37.0); MEAN PLATELET VOLUME 9.1 fl (7.0-11.0); RED CELL DISTRIBUTION WIDTH 14.8 % (11.5-14.5); WHITE BLOOD COUNT 12.1 10^3/ul (4.5-11.0)
[2017-10-28 13:38] LABS: HEMATOCRIT 26.2 % (36.0-48.0)
--- NOTE | 2017-10-28 13:59 | RAD ---
HISTORY: eval COMPARISON: 10/25/2017 FINDINGS: LUNGS: No active pulmonary disease. PLEURA: No significant pleural effusion identified, no pneumothorax apparent. CARDIOVASCULAR: Moderate cardiomegaly. Dual lead pacemaker OSSEOUS STRUCTURES: No significant abnormalities. VISUALIZED UPPER ABDOMEN: Normal. OTHER FINDINGS: None. IMPRESSION: No active disease.
--- NOTE | 2017-10-28 15:38 | CP.PCM.PN ---
<Nadine Cardenas - Last Filed: 10/28/17 15:35> Subjective - Date & Time of Evaluation Date of Evaluation: 10/28/17 Time of Evaluation: 09:45 - Subjective Subjective: Seen and examined at bedside earlier today,chart reviewed. Denies pain, s/p liver biospy yesterday. No acute overnight events reported. Objective - Vital Signs/Intake and Output Vital Signs (last 24 hours): Temp Pulse Resp BP Pulse Ox 98.6 F 87 20 183/84 H 93 L 10/28/17 08:00 10/28/17 08:00 10/28/17 08:00 10/28/17 09:35 10/28/17 08:00 Intake and Output: 10/28/17 10/28/17 06:59 18:59 Intake Total 120 Output Total 0 Balance 120 - Medications Medications: Current Medications Acetaminophen (Tylenol 325mg Tab) 650 mg PO Q4 PRN PRN Reason: Pain, Mild (1-3) Last Admin: 10/27/17 17:12 Dose: 650 mg Albuterol Sulfate (Albuterol 0.5% Inhal Sonia (2.5 Mg/0.5 Ml) Ud) 2.5 mg IH Q4H PRN PRN Reason: Shortness of Breath Atorvastatin Calcium (Lipitor) 40 mg PO DIN [facility] Last Admin: 10/27/17 18:17 Dose: 40 mg Diltiazem HCl (Cardizem Cd) 240 mg PO DAILY [facility] Last Admin: 10/28/17 09:35 Dose: 240 mg Metoprolol Succinate (Toprol Xl) 100 mg PO DAILY [facility] Last Admin: 10/28/17 09:34 Dose: 100 mg Ondansetron HCl (Zofran Inj) 4 mg IVP STAT PRN PRN Reason: Nausea/Vomiting Pantoprazole Sodium (Protonix Ec Tab) 40 mg PO DAILY [facility] Last Admin: 10/28/17 09:33 Dose: 40 mg Polyethylene Glycol (Miralax) 17 gm PO TID [facility] Last Admin: 10/28/17 14:14 Dose: Not Given Ramipril (Altace) 2.5 mg PO DAILY [facility] Last Admin: 10/28/17 09:33 Dose: 2.5 mg Trazodone HCl (Desyrel) 50 mg PO HS [facility] Last Admin: 10/27/17 22:27 Dose: 50 mg - Labs Labs: 10/28/17 13:32 10/28/17 06:30 PT 11.9 SECONDS (9.4-12.5) 10/28/17 06:30 INR 1.08 (0.93-1.08) 10/28/17 06:30 APTT 38.5 Seconds (25.1-36.5) H 10/26/17 06:30 - Constitutional Appears: No Acute Distress - Head Exam Head Exam: NORMOCEPHALIC - Eye Exam Eye Exam: Normal appearance. absent: Scleral icterus - ENT Exam ENT Exam: Mucous Membranes Moist - Neck Exam Neck Exam: Normal Inspection - Respiratory Exam Respiratory Exam: NORMAL BREATHING PATTERN. absent: Respiratory Distress - Cardiovascular Exam Cardiovascular Exam: +S1, +S2 - GI/Abdominal Exam GI & Abdominal Exam: Soft, Normal Bowel Sounds. 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 Sorensen. <Ari Sorensen V - Last Filed: 10/29/17 01:39> Objective - Vital Signs/Intake and Output Vital Signs (last 24 hours): Temp Pulse Resp BP Pulse Ox 98.5 F 73 18 163/71 H 92 L 10/28/17 16:00 10/28/17 16:00 10/28/17 16:00 10/28/17 16:00 10/28/17 16:00 Intake and Output: 10/28/17 10/29/17 18:59 06:59 Intake Total 120 Balance 120 - Medications Medications: Current Medications Acetaminophen (Tylenol 325mg Tab) 650 mg PO Q4 PRN PRN Reason: Pain, Mild (1-3) Last Admin: 10/27/17 17:12 Dose: 650 mg Albuterol Sulfate (Albuterol 0.5% Inhal Sonia (2.5 Mg/0.5 Ml) Ud) 2.5 mg IH Q4H PRN PRN Reason: Shortness of Breath Atorvastatin Calcium (Lipitor) 40 mg PO DIN [facility] Last Admin: 10/28/17 18:19 Dose: 40 mg Diltiazem HCl (Cardizem Cd) 240 mg PO DAILY [facility] Last Admin: 10/28/17 09:35 Dose: 240 mg Metoprolol Succinate (Toprol Xl) 100 mg PO DAILY [facility] Last Admin: 10/28/17 09:34 Dose: 100 mg Ondansetron HCl (Zofran Inj) 4 mg IVP STAT PRN PRN Reason: Nausea/Vomiting Pantoprazole Sodium (Protonix Ec Tab) 40 mg PO DAILY [facility] Last Admin: 10/28/17 09:33 Dose: 40 mg Polyethylene Glycol (Miralax) 17 gm PO TID [facility] Last Admin: 10/28/17 18:19 Dose: 17 gm Ramipril (Altace) 2.5 mg PO DAILY [facility] Last Admin: 10/28/17 09:33 Dose: 2.5 mg Trazodone HCl (Desyrel) 50 mg PO HS [facility] Last Admin: 10/28/17 23:07 Dose: 50 mg - Labs Labs: 10/28/17 13:32 10/28/17 06:30 PT 11.9 SECONDS (9.4-12.5) 10/28/17 06:30 INR 1.08 (0.93-1.08) 10/28/17 06:30 APTT 38.5 Seconds (25.1-36.5) H 10/26/17 06:30 Attending/Attestation - Attestation I have personally seen and examined this patient.: Yes I have fully participated in the care of the patient.: Yes I have reviewed all pertinent clinical information, including history, physical exam and plan: Yes Notes (Text): This is an addendum to GI progress report dictated by Nadine Cardenas APN.The patient was seen and examined earlier. Medical records, lab studies, imagings were reviewed. Last 24 hours events reviewed. Agreed with the above treatment plan as outlined in Nadine Cardenas APN's notes the with the addition of the following on examination abdomen appears to be distended especially in the lower abdomen. No significant tenderness Status post CT-guided liver biopsy Follow up the biopsy results. 10/29/17 01:39
--- NOTE | 2017-10-28 17:03 | CP.PCM.CON ---
History of Present Illness - History of Present Illness History of Present Illness: Palliative consult requested by Dr Russell Noe Reason: Goals of care/advance care planning 87 year old female with history of DC, CAD and pacemaker who presented with generalized weakness, fatigue and difficulty walking. Patient reported worsening hip and back pain, decreased appetite and irregular bowel movements over the past few months. She denied nausea, vomiting, chest pain or headaches. CT of chest/Ab small right pleural effusion, innumerable hypodense hepatic masses suspicious for metastasis, diffuse constipation, 7cm X 5cm left pelvic cystic lesion with 6 mm calcification ovarian neoplasm not excluded, decreased materialization of the bones, T9 compression fracture. Bone scan showed compression fractures of mid thoracic and lumbar spine. CT guided biopsy of liver done 10/27, path report pending PMHx: CAD, pacemaker, anti coagulation therapy,arthritis,DC,HTN. Social History: Former smoker, no alcohol or drug use. Lived independently Family History: Non contributory. Advance Care Planning: The patient does not have an Advanced Directive Review of Systems: As per HPI, all other systems are negative. Past Patient History - Past Social History Smoking Status: Former Smoker Alcohol: None Drugs: Denies - CARDIAC Hx Cardiac Disorders: Yes Hx Hypertension: Yes Hx Pacemaker: Yes - PULMONARY Hx Respiratory Disorders: No - NEUROLOGICAL Hx Neurological Disorder: No - HEENT Other/Comment: hard of hearing - ENDOCRINE/METABOLIC Hx Endocrine Disorders: No - HEMATOLOGICAL/ONCOLOGICAL Hx Blood Disorders: No - MUSCULOSKELETAL/RHEUMATOLOGICAL Hx Arthritis: Yes - GASTROINTESTINAL Hx Gastrointestinal Disorders: No - GENITOURINARY/GYNECOLOGICAL Hx Genitourinary Disorders: No - PSYCHIATRIC Hx Substance Use: No - SURGICAL HISTORY Hx Surgeries: Yes Hx Coronary Stent: Yes Other/Comment: pacemaker - ANESTHESIA Hx Anesthesia: Yes Hx Anesthesia Reactions: No Hx Malignant Hyperthermia: No Meds Allergies/Adverse Reactions: Allergies Allergy/AdvReac Type Severity Reaction Status Date / Time No Known Allergies Allergy Verified 10/25/17 16:13 - Medications Medications: Current Medications Acetaminophen (Tylenol 325mg Tab) 650 mg PO Q4 PRN PRN Reason: Pain, Mild (1-3) Last Admin: 10/27/17 17:12 Dose: 650 mg Albuterol Sulfate (Albuterol 0.5% Inhal Sonia (2.5 Mg/0.5 Ml) Ud) 2.5 mg IH Q4H PRN PRN Reason: Shortness of Breath Atorvastatin Calcium (Lipitor) 40 mg PO DIN [facility] Last Admin: 10/27/17 18:17 Dose: 40 mg Diltiazem HCl (Cardizem Cd) 240 mg PO DAILY [facility] Last Admin: 10/28/17 09:35 Dose: 240 mg Metoprolol Succinate (Toprol Xl) 100 mg PO DAILY [facility] Last Admin: 10/28/17 09:34 Dose: 100 mg Ondansetron HCl (Zofran Inj) 4 mg IVP STAT PRN PRN Reason: Nausea/Vomiting Pantoprazole Sodium (Protonix Ec Tab) 40 mg PO DAILY [facility] Last Admin: 10/28/17 09:33 Dose: 40 mg Polyethylene Glycol (Miralax) 17 gm PO TID [facility] Last Admin: 10/28/17 14:14 Dose: Not Given Ramipril (Altace) 2.5 mg PO DAILY [facility] Last Admin: 10/28/17 09:33 Dose: 2.5 mg Trazodone HCl (Desyrel) 50 mg PO HS [facility] Last Admin: 10/27/17 22:27 Dose: 50 mg Physical Exam - Constitutional Appears: No Acute Distress - Head Exam Head Exam: NORMAL INSPECTION - Eye Exam Eye Exam: Normal appearance, PERRL - ENT Exam ENT Exam: Mucous Membranes Moist, Normal Oropharynx - Neck Exam Neck exam: Positive for: Normal Inspection - Respiratory Exam Respiratory Exam: Decreased Breath Sounds, Clear to Auscultation Bilateral - Cardiovascular Exam Cardiovascular Exam: REGULAR RHYTHM, +S1, +S2 - GI/Abdominal Exam GI & Abdominal Exam: Normal Bowel Sounds, Soft Additional comments: RUQ tenderness - Extremities Exam Extremities exam: Positive for: normal inspection, pedal pulses present - Neurological Exam Neurological exam: Alert - Skin Skin Exam: Dry, Pallor - Additional Findings Additional findings: Palliative performance scale rating 50% Results - Vital Signs Recent Vital Signs: Last Vital Signs Temp 98.5 F 10/28/17 16:00 Pulse 73 10/28/17 16:00 Resp 18 10/28/17 16:00 BP 163/71 H 10/28/17 16:00 Pulse Ox 92 L 10/28/17 16:00 - Labs Result Diagrams: 10/28/17 13:32 10/28/17 06:30 Labs: Laboratory Results - last 24 hr 10/28/17 10/28/17 10/28/17 06:30 06:30 06:30 WBC 12.8 H D RBC 2.90 L Hgb 8.5 L Hct 26.9 L MCV 92.8 MCH 29.3 MCHC 31.6 RDW 15.0 H Plt Count 240 MPV 9.3 Gran % 79.2 H Lymph % (Auto) 11.3 L [place] % (Auto) 9.1 H Eos % (Auto) 0.2 L Baso % (Auto) 0.2 Gran # 10.13 H Lymph # 1.5 [place] # 1.2 H Eos # 0.0 Baso # 0.02 PT 11.9 INR 1.08 Sodium 134 Potassium 4.2 Chloride 98 Carbon Dioxide 28 Anion Gap 12 BUN 23 H Creatinine 0.9 Est GFR ( Amer) > 60 Est GFR (Non-Af Amer) 59 Random Glucose 115 H Calcium 9.5 Total Bilirubin 0.8 AST 47 H ALT 29 Alkaline Phosphatase 139 H Total Protein 7.4 Albumin 3.4 Globulin 4.0 Albumin/Globulin Ratio 0.8 L 10/28/17 10/28/17 12:00 13:32 WBC 12.1 H RBC 2.81 L Hgb 8.4 L 8.3 L Hct 25.9 L 26.2 L MCV 92.2 MCH 29.9 MCHC 32.4 RDW 14.8 H Plt Count 229 MPV 9.1 Gran % Lymph % (Auto) [place] % (Auto) Eos % (Auto) Baso % (Auto) Gran # Lymph # [place] # Eos # Baso # PT INR Sodium Potassium Chloride Carbon Dioxide Anion Gap BUN Creatinine Est GFR ( Amer) Est GFR (Non-Af Amer) Random Glucose Calcium Total Bilirubin AST ALT Alkaline Phosphatase Total Protein Albumin Globulin Albumin/Globulin Ratio Assessment & Plan - Assessment and Plan (Free Text) Assessment: 87 year old female with history of CAD, DC and pacemaker who is admitted with leukocytosis, masses in the pelvis and liver,constipation, generalized weakness and decreased appetite. CT guided biopsy of liver done 10/27, path report pending. The patient is alert, poor historian. Swazi speaking. Denied pain. Patients daughter Melia and son in law at bedside. Melia is aware that patient may have advanced cancer. She is awaiting pathology report before making decision regarding future goals of care. Daughter infers that she may not want to put her mother through the rigors of treatment. I explained that if diagnosed with cancer, her mother may not be a candidate for chemotherapy due to her age and other comorbidities. Advance care planning conversation ensued. Daughter has never discussed resuscitation wishes with her mother. We talked specifically about CPR and intubation. Benefits and burden of resuscitation explained, questions answered. Daughter understands the importance of advance care planning and intends to talk with her mother regarding her wishes. I offered to help facilitate this discussion. Daughter is appreciative of palliative support, will talk to her mother first.Psychosocial support given. Time sent in goals of care discussion and advance care planning,30 minutes Plan: Palliative support in establishing goals of care Advance care planning
--- NOTE | 2017-10-28 18:20 | PN ---
DATE: 10/28/2017 CARDIOLOGY FOLLOWUP SUBJECTIVE: The patient is comfortable in bed. No shortness of breath. No chest pain. OBJECTIVE: VITAL SIGNS: Blood pressure is 143/80, the heart rate is in the 80s. NECK: Negative JVD. LUNGS: Without rales. HEART: S1, S2. EXTREMITIES: Without edema. LABORATORY DATA: Hemoglobin is 3.3. Chemistries: BUN and creatinine are unremarkable. The patient is status post liver biopsy. IMPRESSION: 1. Rule out liver metastases. 2. Abdominal pain. 3. Anemia. 4. Stable angina. 5. History of percutaneous transluminal coronary angioplasty. 6. History of pacemaker. Given these findings, the patient remains hemodynamically stable, awaiting results of biopsy results. Woody Ambrose MD
[2017-10-29 07:29] LABS: BASO # 0.02 K/mm3 (0.0-2.0); BASO % 0.1 % (0.0-3.0); EOS % 0.2 % (1.5-5.0); GRAN # 10.6 (1.4-6.5); GRAN % 77.3 % (50.0-68.0); HEMATOCRIT 26.5 % (36.0-48.0); LYMPH # 1.8 (1.2-3.4); LYMPH % 12.8 % (22.0-35.0); MEAN CELL VOLUME 92.3 fl (80.0-105.0); MEAN CORPUSCULAR HEMOGLOBIN 29.3 pg (25.0-35.0); MEAN CORPUSCULAR HGB CONC 31.7 g/dl (31.0-37.0); MEAN PLATELET VOLUME 9.4 fl (7.0-11.0); MONO # 1.3 (0.1-0.6); MONO % 9.6 % (1.0-6.0); RED CELL DISTRIBUTION WIDTH 15.1 % (11.5-14.5); WHITE BLOOD COUNT 13.7 10^3/ul (4.5-11.0)
[2017-10-29 07:34] LABS: INR 1.05 (0.93-1.08)
[2017-10-29 07:50] LABS: ALB/GLOB RATIO 0.8 (1.1-1.8); ALKALINE PHOSPHATASE 154 U/L (38-126); ALT/SGPT 29 U/L (7-56); AST/SGOT 52 U/L (14-36); BILIRUBIN,TOTAL 0.7 mg/dL (0.2-1.3); BLOOD UREA NITROGEN 24 mg/dL (7-21); CALCIUM 9.5 mg/dL (8.4-10.5); CARBON DIOXIDE 28 mmol/L (21-33); CHLORIDE 98 mmol/L (98-107); GFR AFRICAN-AMERICAN > 60; GLUCOSE,RANDOM 120 mg/dL (70-110); POTASSIUM 3.9 mmol/L (3.6-5.0); SODIUM 136 mmol/L (132-148); TOTAL PROTEIN 7.4 g/dL (5.8-8.3)
[2017-10-29] MEDS: diltiaZEM 240 mg/24 Hours CD Cap PO SCH (09:33)
[2017-10-29] MEDS: Metoprolol Succinate 100 mg XL Tab PO SCH (09:34)
[2017-10-29] MEDS: Pantoprazole 40 mg EC Tab PO SCH (09:34)
[2017-10-29] MEDS: POLYETHYLENE GLYCOL 3350 17 GM/Dose PACKET PO SCH ×3 (09:39→19:07)
[2017-10-29 10:43] LABS: PH,URINE 6.5 (4.7-8.0); URINE BILIRUBIN SMALL (NEGATIVE); URINE BLOOD LARGE (NEGATIVE); URINE GLUCOSE (UA) NEGATIVE (NEGATIVE); URINE KETONE TRACE mg/dL (NEGATIVE); URINE LEUKOCYTE ESTERASE SMALL Leu/uL (NEGATIVE); URINE PROTEIN 30 mg/dL (<30 mg/dL)
[2017-10-29 10:52] LABS: URINE APPEARANCE TURBID (CLEAR); URINE COLOR YELLOW (YELLOW)
[2017-10-29 10:53] LABS: URINE BACTERIA MANY (NEG); URINE WBC 0 - 2 /hpf (0-6)
[2017-10-29] MEDS: Oxycodone/Acetaminophen 5/325 mg Tab PO PRN (12:24)
[2017-10-29] MEDS ORDERED: Sodium Chloride 0.45% 1,000 ML IV SCH (14:15)
[2017-10-29] MEDS: Sodium Chloride 0.45% 1,000 ML IV SCH (14:30)
--- NOTE | 2017-10-29 15:56 | CP.PCM.PN ---
Subjective - Date & Time of Evaluation Date of Evaluation: 10/29/17 Time of Evaluation: 15:53 - Subjective Subjective: IM PROGRESS NOTE DR. WILL/DR. WEBER Patient seen and evaluated at bedside. No acute events overnight. Patient awaiting liver biopsy results. Patient denies chest pain, shortness of breath, nausea, vomiting, fever, chills. Objective - Vital Signs/Intake and Output Vital Signs (last 24 hours): Temp Pulse Resp BP Pulse Ox 98.6 F 79 20 150/70 96 10/29/17 09:30 10/29/17 09:34 10/29/17 09:30 10/29/17 09:34 10/29/17 09:30 Intake and Output: 10/29/17 10/29/17 06:59 18:59 Intake Total 120 Balance 120 - Medications Medications: Current Medications Acetaminophen (Tylenol 325mg Tab) 650 mg PO Q4 PRN PRN Reason: Pain, Mild (1-3) Last Admin: 10/29/17 10:29 Dose: 650 mg Albuterol Sulfate (Albuterol 0.5% Inhal Sonia (2.5 Mg/0.5 Ml) Ud) 2.5 mg IH Q4H PRN PRN Reason: Shortness of Breath Atorvastatin Calcium (Lipitor) 40 mg PO DIN [facility] Last Admin: 10/28/17 18:19 Dose: 40 mg Diltiazem HCl (Cardizem Cd) 240 mg PO DAILY [facility] Last Admin: 10/29/17 09:33 Dose: 240 mg Sodium Chloride (Sodium Chloride 0.45%) 1,000 mls @ 75 mls/hr IV .[id number] [facility] Last Admin: 10/29/17 14:30 Dose: 75 mls/hr Metoprolol Succinate (Toprol Xl) 100 mg PO DAILY [facility] Last Admin: 10/29/17 09:34 Dose: 100 mg Ondansetron HCl (Zofran Inj) 4 mg IVP STAT PRN PRN Reason: Nausea/Vomiting Oxycodone/Acetaminophen (Percocet 5/325 Mg Tab) 1 tab PO Q6H PRN PRN Reason: Pain, severe (8-10) Stop: 11/01/17 12:17 Last Admin: 10/29/17 12:24 Dose: 1 tab Pantoprazole Sodium (Protonix Ec Tab) 40 mg PO DAILY [facility] Last Admin: 10/29/17 09:34 Dose: 40 mg Polyethylene Glycol (Miralax) 17 gm PO TID [facility] Last Admin: 10/29/17 14:30 Dose: 17 gm Ramipril (Altace) 2.5 mg PO DAILY [facility] Last Admin: 10/29/17 09:34 Dose: 2.5 mg Trazodone HCl (Desyrel) 50 mg PO HS [facility] Last Admin: 10/28/17 23:07 Dose: 50 mg - Labs Labs: 10/29/17 07:00 10/29/17 07:00 PT 11.6 SECONDS (9.4-12.5) 10/29/17 07:00 INR 1.05 (0.93-1.08) 10/29/17 07:00 APTT 38.5 Seconds (25.1-36.5) H 10/26/17 06:30 - Constitutional Appears: No Acute Distress - Head Exam Head Exam: ATRAUMATIC, NORMAL INSPECTION, NORMOCEPHALIC - Eye Exam Eye Exam: EOMI, PERRL - ENT Exam ENT Exam: Mucous Membranes Moist - Respiratory Exam Respiratory Exam: Clear to Ausculation Bilateral, NORMAL BREATHING PATTERN - Cardiovascular Exam Cardiovascular Exam: REGULAR RHYTHM, +S1, +S2 - GI/Abdominal Exam GI & Abdominal Exam: Soft, Tenderness (mild ruq), Normal Bowel Sounds - Extremities Exam Extremities Exam: absent: Calf Tenderness, Pedal Edema - Neurological Exam Neurological Exam: Alert, Awake, Oriented x3 - Psychiatric Exam Psychiatric exam: Normal Affect, Normal Mood - Skin Skin Exam: Dry, Warm. absent: Rash Assessment and Plan - Assessment and Plan (Free Text) Assessment: Patient is an 87 year old female with past medical history of arthritis, UT, CAD , pacemaker, on anticoagulation with coumadin who presents via ambulance for generalized weakness and fatigue. Patient found to have pelvic mass with possible mets on Abdominal CT in ED. Patient being evaluated for suspected ovarian neoplasm. Plan: Abdominal Pain - Etiology: suspected ovarian malignancy - Abd CT findings: Pelvic mass with hypodensities in liver, concerning for cancer with metastasis, see report for full detail - Heme/Onc: Dr. Goel - check CA 125 wnl, CEA wnl - CT guided biopsy with Dr. Woody Blanco done f/u results - discussion with family regarding suspected dx - IR consult with Dr. Woody Blanco, appreciate recs - liver biopsy, will follow up results - [facility] [employer] with Dr. Medina contacted and discussed [id number], wanting to wait on biopsy results, reach out to if needed - GI with Dr. Sorensen consulted, appreciate recs - wants to f/u biopsy result, cont management - PT/OT for difficulty with ambulation secondary to pain - increase miralax for constipation, suppository given for bm progression Compression fracture T9 - CT/ABD showing compression fracture T9 - Pain distribution related to findings on abd/pelvis CT - Bone scan - compression fractures thoracic and lumbar Atrial Fibrillation - Holding coumadin per Cardio as of now - Heme on board Anemia, Normocytic - Drop in H/H today, suspect dilutional vs. blood loss from procedure - H/H repeat this PM, will consider ab CT for eval if cont to drop - Likely anemia of chronic disease - Vb12 wnl, Folate wnl Hx CAD - Holding plavix at this time - Lipitor Hx of HTN - Metoprolol - Diltiazem Hx of GERD - Protonix - monitor GI ppx: Protonix DVT ppx: SCDs Case and plan reviewed and discussed with attending
--- NOTE | 2017-10-29 16:06 | CP.PCM.PN ---
<Nadine Cardenas - Last Filed: 10/29/17 16:02> Subjective - Date & Time of Evaluation Date of Evaluation: 10/29/17 Time of Evaluation: 09:50 - Subjective Subjective: S&E at bedside earlier today, No BM last night reported, prior to assess for fecal impaction patient turned and moderate amount of brown stool pasty stool with pebble -like stool noted. Patient c/o abdominal pain , mainly upper abdomen. No N/V, fever or chills. Liver BX pending. No SOB or chest pain. Objective - Vital Signs/Intake and Output Vital Signs (last 24 hours): Temp Pulse Resp BP Pulse Ox 98.6 F 79 20 150/70 96 10/29/17 09:30 10/29/17 09:34 10/29/17 09:30 10/29/17 09:34 10/29/17 09:30 Intake and Output: 10/29/17 10/29/17 06:59 18:59 Intake Total 120 Balance 120 - Medications Medications: Current Medications Acetaminophen (Tylenol 325mg Tab) 650 mg PO Q4 PRN PRN Reason: Pain, Mild (1-3) Last Admin: 10/29/17 10:29 Dose: 650 mg Albuterol Sulfate (Albuterol 0.5% Inhal Sonia (2.5 Mg/0.5 Ml) Ud) 2.5 mg IH Q4H PRN PRN Reason: Shortness of Breath Atorvastatin Calcium (Lipitor) 40 mg PO DIN [facility] Last Admin: 10/28/17 18:19 Dose: 40 mg Diltiazem HCl (Cardizem Cd) 240 mg PO DAILY [facility] Last Admin: 10/29/17 09:33 Dose: 240 mg Sodium Chloride (Sodium Chloride 0.45%) 1,000 mls @ 75 mls/hr IV .[id number] [facility] Last Admin: 10/29/17 14:30 Dose: 75 mls/hr Metoprolol Succinate (Toprol Xl) 100 mg PO DAILY [facility] Last Admin: 10/29/17 09:34 Dose: 100 mg Ondansetron HCl (Zofran Inj) 4 mg IVP STAT PRN PRN Reason: Nausea/Vomiting Oxycodone/Acetaminophen (Percocet 5/325 Mg Tab) 1 tab PO Q6H PRN PRN Reason: Pain, severe (8-10) Stop: 11/01/17 12:17 Last Admin: 10/29/17 12:24 Dose: 1 tab Pantoprazole Sodium (Protonix Ec Tab) 40 mg PO DAILY [facility] Last Admin: 10/29/17 09:34 Dose: 40 mg Polyethylene Glycol (Miralax) 17 gm PO TID [facility] Last Admin: 10/29/17 14:30 Dose: 17 gm Ramipril (Altace) 2.5 mg PO DAILY [facility] Last Admin: 10/29/17 09:34 Dose: 2.5 mg Trazodone HCl (Desyrel) 50 mg PO HS [facility] Last Admin: 10/28/17 23:07 Dose: 50 mg - Labs Labs: 10/29/17 07:00 10/29/17 07:00 PT 11.6 SECONDS (9.4-12.5) 10/29/17 07:00 INR 1.05 (0.93-1.08) 10/29/17 07:00 APTT 38.5 Seconds (25.1-36.5) H 10/26/17 06:30 - Constitutional Appears: No Acute Distress - Eye Exam Eye Exam: Normal appearance. absent: Scleral icterus - ENT Exam ENT Exam: Mucous Membranes Moist - Respiratory Exam Respiratory Exam: Decreased Breath Sounds, NORMAL BREATHING PATTERN. absent: Respiratory Distress - Cardiovascular Exam Cardiovascular Exam: +S1, +S2 - GI/Abdominal Exam GI & Abdominal Exam: Distended, Soft, Tenderness (diffuse upper abdominal tenderness on palpation), Hypoactive Bowel Sounds. absent: Guarding, Rebound - Extremities Exam Extremities Exam: absent: Calf Tenderness (trace bilateral edema) - Neurological Exam Neurological Exam: Alert, Awake, Oriented x3 - Skin Skin Exam: Dry, Warm Assessment and Plan - Assessment and Plan (Free Text) Assessment: ASSESSMENT: Abdominal Pain Constipation Abnormal CT scan: Pelvic mass /Ovarian mass w/ liver masses possible metastasis Compression fracture T9 Atrial Fibrillation H/O cholecystectomy Anemia CAD Pacemaker PLAN: FU liver biopsy monitor LFT, h/h continue PPI continue Miralax diet as tolerated as per oncology pain mgt FINANCIAL OPERATIONS CONSULTANT eval consider repeat ct scan A&P if continue w/ abdominal pain. Seen and discussed w/ Dr. Sorensen. <Ari Sorensen V - Last Filed: 10/29/17 23:14> Objective - Vital Signs/Intake and Output Vital Signs (last 24 hours): Temp Pulse Resp BP Pulse Ox 98.2 F 72 18 127/61 98 10/29/17 18:15 10/29/17 18:15 10/29/17 18:15 10/29/17 18:15 10/29/17 18:15 Intake and Output: 10/29/17 10/30/17 18:59 06:59 Intake Total 100 2 Output Total 1 Balance 100 1 - Medications Medications: Current Medications Acetaminophen (Tylenol 325mg Tab) 650 mg PO Q4 PRN PRN Reason: Pain, Mild (1-3) Last Admin: 10/29/17 10:29 Dose: 650 mg Albuterol Sulfate (Albuterol 0.5% Inhal Sonia (2.5 Mg/0.5 Ml) Ud) 2.5 mg IH Q4H PRN PRN Reason: Shortness of Breath Atorvastatin Calcium (Lipitor) 40 mg PO DIN [facility] Last Admin: 10/29/17 19:07 Dose: Not Given Diltiazem HCl (Cardizem Cd) 240 mg PO DAILY [facility] Last Admin: 10/29/17 09:33 Dose: 240 mg Sodium Chloride (Sodium Chloride 0.45%) 1,000 mls @ 75 mls/hr IV .[id number] [facility] Last Admin: 10/29/17 14:30 Dose: 75 mls/hr Metoprolol Succinate (Toprol Xl) 100 mg PO DAILY [facility] Last Admin: 10/29/17 09:34 Dose: 100 mg Ondansetron HCl (Zofran Inj) 4 mg IVP STAT PRN PRN Reason: Nausea/Vomiting Oxycodone/Acetaminophen (Percocet 5/325 Mg Tab) 1 tab PO Q6H PRN PRN Reason: Pain, severe (8-10) Stop: 11/01/17 12:17 Last Admin: 10/29/17 12:24 Dose: 1 tab Pantoprazole Sodium (Protonix Ec Tab) 40 mg PO DAILY [facility] Last Admin: 10/29/17 09:34 Dose: 40 mg Polyethylene Glycol (Miralax) 17 gm PO TID [facility] Last Admin: 10/29/17 19:07 Dose: Not Given Ramipril (Altace) 2.5 mg PO DAILY [facility] Last Admin: 10/29/17 09:34 Dose: 2.5 mg Trazodone HCl (Desyrel) 50 mg PO HS [facility] Last Admin: 10/29/17 22:07 Dose: 50 mg - Labs Labs: 10/29/17 07:00 10/29/17 07:00 PT 11.6 SECONDS (9.4-12.5) 10/29/17 07:00 INR 1.05 (0.93-1.08) 10/29/17 07:00 APTT 38.5 Seconds (25.1-36.5) H 10/26/17 06:30 Attending/Attestation - Attestation I have personally seen and examined this patient.: Yes I have fully participated in the care of the patient.: Yes I have reviewed all pertinent clinical information, including history, physical exam and plan: Yes Notes (Text): This is an addendum to GI progress report dictated by Nadine Cardenas APN.The patient was seen and examined earlier. Medical records, lab studies, imagings were reviewed. Last 24 hours events reviewed. Agreed with the above treatment plan as outlined in Nadine Cardenas APN's notes the with the addition of the following Patient's daughter was at bedside at the time of examination patient did have repeat today liver biopsy done Is tenderness in the epigastric and right upper quadrant area Follow-up LFTs Follow up with the hemoglobin and hematocrit On examination abdomen soft tenderness present in the epigastric area and right upper quadrant area Follow-up with the liver biopsy report 10/29/17 23:11 1
[2017-10-29] MEDS ORDERED: Midazolam 2 MG/2 ML VIAL ONE (16:53)
--- NOTE | 2017-10-29 17:50 | PN ---
CARDIOLOGY FOLLOWUP DATE OF SERVICE: 10/29/2017 SUBJECTIVE: The patient expressed some pain to the nurses taking care of her. OBJECTIVE: VITAL SIGNS: Blood pressure is 150/70, the heart rate is in the 80s. NECK: Negative JVD. LUNGS: Without rales. HEART: Reveals S1 and S2. EXTREMITIES: Without edema. LABORATORY DATA: Unremarkable other than hemoglobin of 8.4. Liver biopsy result is still pending. IMPRESSION: 1. Status post liver biopsy to rule out metastatic carcinoma. 2. Abdominal pain. 3. Anemia. 4. Stable angina. 5. History of percutaneous transluminal coronary angioplasty and stent. 6. History of pacemaker. PLAN: Given these findings, the patient's pain is not well controlled with Tylenol, we will add Percocet. We will need better pain management. Woody Ambrose MD
--- NOTE | 2017-10-29 18:04 | CT ---
PROCEDURE: Repeat CT-guided liver biopsy HISTORY: Pelvic mass with multiple liver lesions. Suspect metastatic disease. Unsuccessful for CT biopsy. Needs repeat CT biopsy. PHYSICIAN(S): Woody Blnaco MD. TECHNIQUE: The relative risks and indications of the procedure were explained to the patient's daughter and consent obtained. The patient was placed supine on the CT scanner and preliminary images through the liver obtained. Conscious sedation and monitoring were provided throughout the procedure by a nurse. A 3.4 cm bilobed low-attenuation lesion in the medial segment of left lobe was selected for biopsy. A right anterior oblique approach was selected and the area prepped and draped in the usual sterile fashion. 1% Xylocaine was used to anesthetize the skin and soft tissues. A 17-gauge guiding needle was advanced into the 3.4 cm left lobe lesion. Its position was confirmed with CT. Using coaxial technique, multiple core biopsies were obtained. The postprocedure images show no evidence of significant hemorrhage. IMPRESSION: 1. Repeat CT-guided liver biopsy as described above.
[2017-10-30] MEDS: Oxycodone/Acetaminophen 5/325 mg Tab PO PRN ×2 (04:18→17:02)
--- NOTE | 2017-10-30 07:21 | CP.PCM.PN ---
Subjective - Date & Time of Evaluation Date of Evaluation: 10/30/17 Time of Evaluation: 10:00 - Subjective Subjective: Patient seen and examined at bedside. No acute overnight events or new complaints. Denies chest pain, palpitations, SOB. Objective - Vital Signs/Intake and Output Vital Signs (last 24 hours): Temp Pulse Resp BP Pulse Ox 98.9 F 88 22 153/99 H 98 10/30/17 00:04 10/30/17 00:04 10/30/17 00:04 10/30/17 00:04 10/30/17 00:04 Intake and Output: 10/30/17 10/30/17 06:59 18:59 Intake Total 1922 Output Total 1 Balance 1921 - Medications Medications: Current Medications Acetaminophen (Tylenol 325mg Tab) 650 mg PO Q4 PRN PRN Reason: Pain, Mild (1-3) Last Admin: 10/29/17 10:29 Dose: 650 mg Albuterol Sulfate (Albuterol 0.5% Inhal Sonia (2.5 Mg/0.5 Ml) Ud) 2.5 mg IH Q4H PRN PRN Reason: Shortness of Breath Atorvastatin Calcium (Lipitor) 40 mg PO DIN [facility] Last Admin: 10/29/17 19:07 Dose: Not Given Diltiazem HCl (Cardizem Cd) 240 mg PO DAILY [facility] Last Admin: 10/29/17 09:33 Dose: 240 mg Sodium Chloride (Sodium Chloride 0.45%) 1,000 mls @ 75 mls/hr IV .[id number] [facility] Last Admin: 10/29/17 14:30 Dose: 75 mls/hr Metoprolol Succinate (Toprol Xl) 100 mg PO DAILY [facility] Last Admin: 10/29/17 09:34 Dose: 100 mg Ondansetron HCl (Zofran Inj) 4 mg IVP STAT PRN PRN Reason: Nausea/Vomiting Oxycodone/Acetaminophen (Percocet 5/325 Mg Tab) 1 tab PO Q6H PRN PRN Reason: Pain, severe (8-10) Stop: 11/01/17 12:17 Last Admin: 10/30/17 04:18 Dose: 1 tab Pantoprazole Sodium (Protonix Ec Tab) 40 mg PO DAILY [facility] Last Admin: 10/29/17 09:34 Dose: 40 mg Polyethylene Glycol (Miralax) 17 gm PO TID [facility] Last Admin: 10/29/17 19:07 Dose: Not Given Ramipril (Altace) 2.5 mg PO DAILY [facility] Last Admin: 10/29/17 09:34 Dose: 2.5 mg Trazodone HCl (Desyrel) 50 mg PO HS [facility] Last Admin: 10/29/17 22:07 Dose: 50 mg - Labs Labs: 10/29/17 07:00 10/29/17 07:00 PT 11.6 SECONDS (9.4-12.5) 10/29/17 07:00 INR 1.05 (0.93-1.08) 10/29/17 07:00 APTT 38.5 Seconds (25.1-36.5) H 10/26/17 06:30 - Head Exam Head Exam: ATRAUMATIC, NORMOCEPHALIC - Eye Exam Eye Exam: EOMI, PERRL - ENT Exam ENT Exam: Mucous Membranes Moist - Respiratory Exam Respiratory Exam: absent: Rales, Rhonchi, Wheezes - Cardiovascular Exam Cardiovascular Exam: +S1, +S2. absent: Gallop, Rubs - GI/Abdominal Exam GI & Abdominal Exam: Soft. absent: Distended, Firm, Guarding, Rigid, Tenderness , Rebound - Neurological Exam Neurological Exam: Alert, Awake, Oriented x3 - Psychiatric Exam Psychiatric exam: Normal Affect, Normal Mood - Skin Skin Exam: Dry, Intact, Normal Color, Warm Assessment and Plan - Assessment and Plan (Free Text) Plan: Patient is an 87 year old female with past medical history of arthritis, [place], CAD , pacemaker, on anticoagulation with coumadin who presents via ambulance for generalized weakness and fatigue. Patient found to have pelvic mass with possible mets on Abdominal CT in ED. Patient being evaluated for suspected ovarian neoplasm. 1. Abdominal Pain - Etiology: suspected ovarian malignancy - Abd CT findings: Pelvic mass with hypodensities in liver, concerning for cancer with metastasis, see report for full detail - Heme/Onc: Dr. Goel - check CA 125 wnl, CEA wnl - CT guided biopsy with Dr. Woody Blanco done f/u results - discussion with family regarding suspected dx - IR consult with Dr. Woody Blanco, appreciate recs - liver biopsy, will follow up results - COMBINATION WORKER with Dr. Medina contacted and discussed [id number], wanting to wait on biopsy results, reach out to if needed - GI with Dr. Sorensen consulted, appreciate recs - wants to f/u biopsy result, cont management - PT/OT for difficulty with ambulation secondary to pain - increase miralax for constipation, suppository given for bm progression 2. Compression fracture T9 - CT/ABD showing compression fracture T9 - Pain distribution related to findings on abd/pelvis CT - Bone scan - compression fractures thoracic and lumbar 3. Atrial Fibrillation - Holding coumadin per Cardio as of now - Heme on board 4. Anemia, Normocytic - Drop in H/H today, suspect dilutional vs. blood loss from procedure - H/H repeat this PM, will consider ab CT for eval if cont to drop - Likely anemia of chronic disease - Vb12 wnl, Folate wnl 5. Hx CAD - Holding plavix at this time - Lipitor 6. Hx of HTN - Metoprolol - Diltiazem 7. Hx of GERD - Protonix - monitor GI ppx: Protonix DVT ppx: SCDs Case reviewed and discussed with attending
[2017-10-30 07:39] LABS: BASO # 0.01 K/mm3 (0.0-2.0); BASO % 0.1 % (0.0-3.0); EOS # 0.1 (0.0-0.7); EOS % 0.4 % (1.5-5.0); GRAN # 9.92 (1.4-6.5); GRAN % 78.5 % (50.0-68.0); HEMATOCRIT 25.1 % (36.0-48.0); LYMPH # 1.3 (1.2-3.4); LYMPH % 9.9 % (22.0-35.0); MEAN CELL VOLUME 93.3 fl (80.0-105.0); MEAN CORPUSCULAR HEMOGLOBIN 29.4 pg (25.0-35.0); MEAN CORPUSCULAR HGB CONC 31.5 g/dl (31.0-37.0); MEAN PLATELET VOLUME 9.3 fl (7.0-11.0); MONO # 1.4 (0.1-0.6); MONO % 11.1 % (1.0-6.0); RED CELL DISTRIBUTION WIDTH 15.3 % (11.5-14.5); WHITE BLOOD COUNT 12.6 10^3/ul (4.5-11.0)
[2017-10-30 08:20] LABS: ALB/GLOB RATIO 0.8 (1.1-1.8); ALKALINE PHOSPHATASE 261 U/L (38-126); ALT/SGPT 76 U/L (7-56); AST/SGOT 128 U/L (14-36); BILIRUBIN,TOTAL 1.5 mg/dL (0.2-1.3); BLOOD UREA NITROGEN 27 mg/dL (7-21); CALCIUM 9.1 mg/dL (8.4-10.5); CARBON DIOXIDE 29 mmol/L (21-33); CHLORIDE 101 mmol/L (98-107); GFR AFRICAN-AMERICAN > 60; GLUCOSE,RANDOM 103 mg/dL (70-110); POTASSIUM 3.7 mmol/L (3.6-5.0); SODIUM 135 mmol/L (132-148); TOTAL PROTEIN 6.8 g/dL (5.8-8.3)
[2017-10-30] MEDS: Pantoprazole 40 mg EC Tab PO SCH (10:45)
[2017-10-30] MEDS: POLYETHYLENE GLYCOL 3350 17 GM/Dose PACKET PO SCH ×3 (10:46→17:02)
[2017-10-30] MEDS: diltiaZEM 240 mg/24 Hours CD Cap PO SCH (10:46)
[2017-10-30] MEDS: Metoprolol Succinate 100 mg XL Tab PO SCH (10:46)
[2017-10-30] MEDS: Albuterol 0.5% Inhal Sol (2.5 mg/0.5 ml) UD IH PRN (11:22)
[2017-10-30] MEDS: Sodium Chloride 0.45% 1,000 ML IV SCH (22:50)
[2017-10-31] MEDS: Oxycodone/Acetaminophen 5/325 mg Tab PO PRN ×3 (06:20→21:37)
[2017-10-31] MEDS: Albuterol 0.5% Inhal Sol (2.5 mg/0.5 ml) UD IH PRN ×2 (06:50→21:53)
[2017-10-31 08:01] LABS: ALB/GLOB RATIO 0.8 (1.1-1.8); ALKALINE PHOSPHATASE 267 U/L (38-126); ALT/SGPT 92 U/L (7-56); AST/SGOT 113 U/L (14-36); BLOOD UREA NITROGEN 21 mg/dL (7-21); CARBON DIOXIDE 27 mmol/L (21-33); CHLORIDE 98 mmol/L (98-107); GFR AFRICAN-AMERICAN > 60; GLUCOSE,RANDOM 96 mg/dL (70-110); POTASSIUM 3.8 mmol/L (3.6-5.0); SODIUM 133 mmol/L (132-148); TOTAL PROTEIN 6.6 g/dL (5.8-8.3)
[2017-10-31 08:06] LABS: BASO # 0.01 K/mm3 (0.0-2.0); BASO % 0.1 % (0.0-3.0); EOS # 0.1 (0.0-0.7); EOS % 0.4 % (1.5-5.0); GRAN # 10.73 (1.4-6.5); GRAN % 78.5 % (50.0-68.0); HEMATOCRIT 25.5 % (36.0-48.0); LYMPH # 1.1 (1.2-3.4); LYMPH % 8.4 % (22.0-35.0); MEAN CELL VOLUME 94.1 fl (80.0-105.0); MEAN CORPUSCULAR HEMOGLOBIN 29.5 pg (25.0-35.0); MEAN CORPUSCULAR HGB CONC 31.4 g/dl (31.0-37.0); MEAN PLATELET VOLUME 9.5 fl (7.0-11.0); MONO # 1.7 (0.1-0.6); MONO % 12.6 % (1.0-6.0); RED CELL DISTRIBUTION WIDTH 15.5 % (11.5-14.5); WHITE BLOOD COUNT 13.7 10^3/ul (4.5-11.0)
--- NOTE | 2017-10-31 09:45 | CP.PCM.PN ---
Subjective - Date & Time of Evaluation Date of Evaluation: 10/31/17 Time of Evaluation: 08:00 - Subjective Subjective: Medicine progress note: Pt seen and examined at bedside. No acute events overnight. doing well and no complaints at this time. No sob, cp, palpitations, abd pain. 12 Point ROS performed and negative other than stated above. Objective - Vital Signs/Intake and Output Vital Signs (last 24 hours): Temp Pulse Resp BP Pulse Ox 97.7 F 74 21 150/69 96 10/31/17 08:00 10/31/17 08:00 10/31/17 08:00 10/31/17 08:00 10/31/17 08:00 Intake and Output: 10/31/17 10/31/17 06:59 18:59 Intake Total 900 Balance 900 - Medications Medications: Current Medications Acetaminophen (Tylenol 325mg Tab) 650 mg PO Q4 PRN PRN Reason: Pain, Mild (1-3) Last Admin: 10/29/17 10:29 Dose: 650 mg Albuterol Sulfate (Albuterol 0.5% Inhal Sonia (2.5 Mg/0.5 Ml) Ud) 2.5 mg IH Q4H PRN PRN Reason: Shortness of Breath Last Admin: 10/31/17 06:50 Dose: 2.5 mg Atorvastatin Calcium (Lipitor) 40 mg PO DIN [facility] Last Admin: 10/30/17 17:02 Dose: 40 mg Diltiazem HCl (Cardizem Cd) 240 mg PO DAILY [facility] Last Admin: 10/30/17 10:46 Dose: 240 mg Sodium Chloride (Sodium Chloride 0.45%) 1,000 mls @ 75 mls/hr IV .[id number] [facility] Last Admin: 10/30/17 22:50 Dose: 75 mls/hr Metoprolol Succinate (Toprol Xl) 100 mg PO DAILY [facility] Last Admin: 10/30/17 10:46 Dose: 100 mg Ondansetron HCl (Zofran Inj) 4 mg IVP STAT PRN PRN Reason: Nausea/Vomiting Oxycodone/Acetaminophen (Percocet 5/325 Mg Tab) 1 tab PO Q6H PRN PRN Reason: Pain, severe (8-10) Stop: 11/01/17 12: Last Admin: 10/31/17 06:20 Dose: 1 tab Pantoprazole Sodium (Protonix Ec Tab) 40 mg PO DAILY [facility] Last Admin: 10/30/17 10:45 Dose: 40 mg Polyethylene Glycol (Miralax) 17 gm PO TID [facility] Last Admin: 10/30/17 17:02 Dose: 17 gm Ramipril (Altace) 2.5 mg PO DAILY [facility] Last Admin: 10/30/17 10:45 Dose: 2.5 mg Trazodone HCl (Desyrel) 50 mg PO HS [facility] Last Admin: 10/30/17 22:48 Dose: 50 mg - Labs Labs: 10/31/17 07:00 10/31/17 07:00 PT 11.6 SECONDS (9.4-12.5) 10/29/17 07:00 INR 1.05 (0.93-1.08) 10/29/17 07:00 APTT 38.5 Seconds (25.1-36.5) H 10/26/17 06:30 - Constitutional Appears: No Acute Distress - Head Exam Head Exam: ATRAUMATIC, NORMOCEPHALIC - Eye Exam Eye Exam: EOMI, PERRL - ENT Exam ENT Exam: Mucous Membranes Moist - Respiratory Exam Respiratory Exam: Clear to Ausculation Bilateral. absent: Wheezes - Cardiovascular Exam Cardiovascular Exam: REGULAR RHYTHM, RRR, +S1, +S2 - GI/Abdominal Exam GI & Abdominal Exam: Soft. absent: Tenderness - Extremities Exam Extremities Exam: absent: Calf Tenderness, Pedal Edema - Neurological Exam Neurological Exam: Alert, Awake, Oriented x3 - Psychiatric Exam Psychiatric exam: Normal Affect, Normal Mood - Skin Skin Exam: Dry, Intact, Warm Assessment and Plan - Assessment and Plan (Free Text) Assessment: 87 year old female with past medical history of arthritis, [place], CAD, pacemaker, on anticoagulation with coumadin who presents via ambulance for generalized weakness and fatigue. Patient found to have pelvic mass with possible mets on Abdominal CT. Patient being evaluated for suspected ovarian neoplasm. 1. Abdominal Pain - Etiology: suspected ovarian malignancy - Abd CT findings: Pelvic mass with hypodensities in liver, concerning for cancer with metastasis, see report for full detail - Heme/Onc: Dr. Goel - check CA 125 wnl, CEA wnl - discussion with family regarding suspected dx - IR consult with Dr. Woody Blanco, appreciate recs - liver biopsy, will follow up path - NON LICENSED NUCLEAR PLANT OPERATOR with Dr. Medina contacted and discussed [id number], wanting to wait on biopsy results, reach out to if needed - GI with Dr. Sorensen consulted, appreciate recs - wants to f/u biopsy result, cont management - increase miralax for constipation, suppository given for bm progression 2. Compression fracture T9 - CT/ABD showing compression fracture T9 - Pain distribution related to findings on abd/pelvis CT - Bone scan - compression fractures thoracic and lumbar 3. Atrial Fibrillation - Holding coumadin per Cardio as of now - rate controlled 4. Anemia, Normocytic - Hb of 8 this am - stable - Likely anemia of chronic disease - Vb12 wnl, Folate wnl 5. Hx CAD - Holding plavix at this time - will consider renewing - Lipitor 6. Hx of HTN - Metoprolol and Diltiazem 7. Hx of GERD - Protonix GI ppx: Protonix DVT ppx: SCDs - PT/OT for difficulty with ambulation secondary to pain Case and plan was reviewed and discussed in detail with Dr Gunderson.
[2017-10-31] MEDS: Metoprolol Succinate 100 mg XL Tab PO SCH (11:21)
[2017-10-31] MEDS: POLYETHYLENE GLYCOL 3350 17 GM/Dose PACKET PO SCH ×3 (11:22→18:26)
[2017-10-31] MEDS: Pantoprazole 40 mg EC Tab PO SCH (11:22)
[2017-10-31] MEDS: diltiaZEM 240 mg/24 Hours CD Cap PO SCH (11:22)
--- NOTE | 2017-11-01 02:19 | PN ---
DATE: 10/31/2017 SUBJECTIVE: This patient was seen and evaluated earlier today. The patient complaints of an abdominal discomfort. PHYSICAL EXAMINATION VITAL SIGNS: Temperature is 97.9, pulse 57 and blood pressure 126/52. HEENT: Appears pale. NECK: Supple. HEART: S1 and S2 heard. ABDOMEN: Softly distended, tenderness present at the epigastric area. LABORATORY DATA: Hemoglobin is 8.0, hematocrit is 25.5, WBC is 13.7 and platelets 254. BUN 21 and creatinine 0.8. IMPRESSION: This 87-year-old patient with large ovarian mass with hepatic lesion, status post repeat liver biopsy done, results pending. The patient noticed to have dropped in blood count. No obvious melena or bright red blood per rectum. Abdomen appears to be slightly distended. The patient is on stool softeners and MiraLax. RECOMMENDATIONS: We would recommend flat plate of the abdomen. Thank you very much. We will continue to closely followup her care and suggest further management based on clinical course. Ari Sorensen MD Job # [id number]
[2017-11-01 07:42] LABS: BASO # 0.01 K/mm3 (0.0-2.0); BASO % 0.1 % (0.0-3.0); EOS # 0.1 (0.0-0.7); EOS % 0.6 % (1.5-5.0); GRAN # 10.33 (1.4-6.5); GRAN % 78.4 % (50.0-68.0); HEMATOCRIT 25.5 % (36.0-48.0); LYMPH # 1.3 (1.2-3.4); LYMPH % 9.9 % (22.0-35.0); MEAN CELL VOLUME 94.4 fl (80.0-105.0); MEAN CORPUSCULAR HEMOGLOBIN 29.3 pg (25.0-35.0); MEAN PLATELET VOLUME 9.2 fl (7.0-11.0); MONO # 1.5 (0.1-0.6); RED CELL DISTRIBUTION WIDTH 15.7 % (11.5-14.5); WHITE BLOOD COUNT 13.2 10^3/ul (4.5-11.0)
[2017-11-01 08:03] LABS: ALB/GLOB RATIO 0.8 (1.1-1.8); ALKALINE PHOSPHATASE 229 U/L (38-126); ALT/SGPT 67 U/L (7-56); AST/SGOT 69 U/L (14-36); BILIRUBIN,TOTAL 0.7 mg/dL (0.2-1.3); BLOOD UREA NITROGEN 23 mg/dL (7-21); CALCIUM 9.3 mg/dL (8.4-10.5); CARBON DIOXIDE 28 mmol/L (21-33); CHLORIDE 97 mmol/L (98-107); GFR AFRICAN-AMERICAN > 60; GLUCOSE,RANDOM 105 mg/dL (70-110); SODIUM 131 mmol/L (132-148); TOTAL PROTEIN 6.4 g/dL (5.8-8.3)
--- NOTE | 2017-11-01 08:33 | RAD ---
HISTORY: abdominal pain, distension, COMPARISON: None. FINDINGS: BOWEL: Normal. No obstruction. No free air. BONES: Normal. OTHER FINDINGS: None. IMPRESSION: No significant or acute findings to account for/ related to the clinical presentation.
[2017-11-01] MEDS ORDERED: Barium Sulfate Susp 2.1% w/v, 2.0% w/w 450 mL Bottle PO ONE (10:23)
--- NOTE | 2017-11-01 11:33 | CP.PCM.PN ---
Subjective - Date & Time of Evaluation Date of Evaluation: 11/01/17 Time of Evaluation: 11:00 - Subjective Subjective: Alert, offers no complaints Objective - Vital Signs/Intake and Output Vital Signs (last 24 hours): Temp Pulse Resp BP Pulse Ox 98.2 F 70 20 150/60 100 11/01/17 07:30 11/01/17 07:30 11/01/17 07:30 11/01/17 07:30 11/01/17 07:30 Intake and Output: 11/01/17 11/01/17 06:59 18:59 Intake Total 300 Balance 300 - Medications Medications: Current Medications Acetaminophen (Tylenol 325mg Tab) 650 mg PO Q4 PRN PRN Reason: Pain, Mild (1-3) Last Admin: 10/29/17 10:29 Dose: 650 mg Albuterol Sulfate (Albuterol 0.5% Inhal Snoia (2.5 Mg/0.5 Ml) Ud) 2.5 mg IH Q4H PRN PRN Reason: Shortness of Breath Last Admin: 10/31/17 21:53 Dose: 2.5 mg Atorvastatin Calcium (Lipitor) 40 mg PO DIN [facility] Last Admin: 10/31/17 18:26 Dose: 40 mg Diltiazem HCl (Cardizem Cd) 240 mg PO DAILY [facility] Last Admin: 10/31/17 11:22 Dose: 240 mg Docusate Sodium (Colace) 100 mg PO TID [facility] Last Admin: 10/31/17 18:26 Dose: 100 mg Sodium Chloride (Sodium Chloride 0.45%) 1,000 mls @ 75 mls/hr IV .[id number] [facility] Last Admin: 10/30/17 22:50 Dose: 75 mls/hr Metoprolol Succinate (Toprol Xl) 100 mg PO DAILY [facility] Last Admin: 10/31/17 11:21 Dose: 100 mg Ondansetron HCl (Zofran Inj) 4 mg IVP STAT PRN PRN Reason: Nausea/Vomiting Oxycodone/Acetaminophen (Percocet 5/325 Mg Tab) 1 tab PO Q6H PRN PRN Reason: Pain, severe (8-10) Stop: 11/01/17 12:17 Last Admin: 10/31/17 21:37 Dose: 1 tab Pantoprazole Sodium (Protonix Ec Tab) 40 mg PO DAILY [facility] Last Admin: 10/31/17 11:22 Dose: 40 mg Polyethylene Glycol (Miralax) 17 gm PO TID [facility] Last Admin: 10/31/17 18:26 Dose: 17 gm Ramipril (Altace) 2.5 mg PO DAILY [facility] Last Admin: 10/31/17 11:22 Dose: 2.5 mg Trazodone HCl (Desyrel) 50 mg PO HS [facility] Last Admin: 10/31/17 23:18 Dose: 50 mg - Labs Labs: 11/01/17 07:00 11/01/17 07:00 PT 11.6 SECONDS (9.4-12.5) 10/29/17 07:00 INR 1.05 (0.93-1.08) 10/29/17 07:00 APTT 38.5 Seconds (25.1-36.5) H 10/26/17 06:30 - Constitutional Appears: Chronically Ill - Eye Exam Eye Exam: Normal appearance Pupil Exam: NORMAL ACCOMODATION - ENT Exam ENT Exam: Mucous Membranes Moist - Neck Exam Neck Exam: Normal Inspection - Respiratory Exam Respiratory Exam: Decreased Breath Sounds, NORMAL BREATHING PATTERN - Cardiovascular Exam Cardiovascular Exam: REGULAR RHYTHM, +S1, +S2 - GI/Abdominal Exam GI & Abdominal Exam: Soft, Tenderness - Extremities Exam Extremities Exam: Normal Capillary Refill, Pedal Edema - Back Exam Back Exam: NORMAL INSPECTION - Neurological Exam Neurological Exam: Alert - Skin Skin Exam: Pallor, Warm Assessment and Plan - Assessment and Plan (Free Text) Assessment: 87 year old female with history CAD,HTN,and GERD of who is admitted with abdominal pain, new finding of pelvic mass with hypodensity in liver anemia and compression fracture of T9. Liver biopsy, pathology report pending. Advance directive discussion and son in law of Wednesday. Benefits and burdens of CPR/intubation explained. POLST Directive also explained,questions answered. POLST directive completed by daughter.A copy of POLST:DNR/DNI is placed on the chart. Plan: POLST: DNR/DNI
[2017-11-01] MEDS: Metoprolol Succinate 100 mg XL Tab PO SCH (11:37)
[2017-11-01] MEDS: diltiaZEM 240 mg/24 Hours CD Cap PO SCH (11:37)
[2017-11-01] MEDS: Pantoprazole 40 mg EC Tab PO SCH (11:40)
[2017-11-01] MEDS: POLYETHYLENE GLYCOL 3350 17 GM/Dose PACKET PO SCH ×3 (11:41→18:02)
[2017-11-01] MEDS: Oxycodone/Acetaminophen 5/325 mg Tab PO PRN ×2 (12:51→18:39)
--- NOTE | 2017-11-01 13:13 | CP.PCM.PN ---
Subjective - Date & Time of Evaluation Date of Evaluation: 11/01/17 Time of Evaluation: 07:00 - Subjective Subjective: PGY [address] WEBER/DR. WILL Patient seen and evaluated at bedside. No acute events overnight reported. Patient reports abdominal discomfort of the right upper quadrant. Patient able to pass gas still having issues with bm. Patient denies chest pain, shortness of breath, vomiting, fever, chills, weakness, blurry vision. Pain management appropriate. Objective - Vital Signs/Intake and Output Vital Signs (last 24 hours): Temp Pulse Resp BP Pulse Ox 98.2 F 70 20 154/68 H 100 11/01/17 07:30 11/01/17 07:30 11/01/17 07:30 11/01/17 11:38 11/01/17 07:30 Intake and Output: 11/01/17 11/01/17 06:59 18:59 Intake Total 300 Balance 300 - Medications Medications: Current Medications Acetaminophen (Tylenol 325mg Tab) 650 mg PO Q4 PRN PRN Reason: Pain, Mild (1-3) Last Admin: 10/29/17 10:29 Dose: 650 mg Albuterol Sulfate (Albuterol 0.5% Inhal Sonia (2.5 Mg/0.5 Ml) Ud) 2.5 mg IH Q4H PRN PRN Reason: Shortness of Breath Last Admin: 10/31/17 21:53 Dose: 2.5 mg Atorvastatin Calcium (Lipitor) 40 mg PO DIN [facility] Last Admin: 10/31/17 18:26 Dose: 40 mg Diltiazem HCl (Cardizem Cd) 240 mg PO DAILY [facility] Last Admin: 11/01/17 11:37 Dose: 240 mg Docusate Sodium (Colace) 100 mg PO TID [facility] Last Admin: 11/01/17 11:50 Dose: Not Given Sodium Chloride (Sodium Chloride 0.45%) 1,000 mls @ 75 mls/hr IV .[id number] [facility] Last Admin: 10/30/17 22:50 Dose: 75 mls/hr Metoprolol Succinate (Toprol Xl) 100 mg PO DAILY [facility] Last Admin: 11/01/17 11:37 Dose: 100 mg Ondansetron HCl (Zofran Inj) 4 mg IVP STAT PRN PRN Reason: Nausea/Vomiting Pantoprazole Sodium (Protonix Ec Tab) 40 mg PO DAILY [facility] Last Admin: 11/01/17 11:40 Dose: 40 mg Polyethylene Glycol (Miralax) 17 gm PO TID [facility] Last Admin: 11/01/17 11:41 Dose: Not Given Ramipril (Altace) 2.5 mg PO DAILY [facility] Last Admin: 11/01/17 11:38 Dose: 2.5 mg Trazodone HCl (Desyrel) 50 mg PO HS [facility] Last Admin: 10/31/17 23:18 Dose: 50 mg - Labs Labs: 11/01/17 07:00 11/01/17 07:00 PT 11.6 SECONDS (9.4-12.5) 10/29/17 07:00 INR 1.05 (0.93-1.08) 10/29/17 07:00 APTT 38.5 Seconds (25.1-36.5) H 10/26/17 06:30 - Constitutional Appears: No Acute Distress - Head Exam Head Exam: ATRAUMATIC, NORMAL INSPECTION, NORMOCEPHALIC - Eye Exam Eye Exam: EOMI, PERRL - ENT Exam ENT Exam: Mucous Membranes Moist - Respiratory Exam Respiratory Exam: Clear to Ausculation Bilateral, NORMAL BREATHING PATTERN - Cardiovascular Exam Cardiovascular Exam: Irregular Rhythm, +S1, +S2 - GI/Abdominal Exam GI & Abdominal Exam: Guarding (RUQ), Soft, Tenderness (RUQ), Normal Bowel Sounds. absent: Firm - Extremities Exam Extremities Exam: Normal Capillary Refill. absent: Calf Tenderness, Pedal Edema - Back Exam Back Exam: paraspinal tenderness (thoracic, lumbar b/l), vertebral tenderness ( thoracic TT8-T10) - Neurological Exam Neurological Exam: Alert, Awake Additional comments: motor and sensory grossly intact, able to move all extremities past midline - Psychiatric Exam Psychiatric exam: Normal Affect, Normal Mood - Skin Skin Exam: Dry, Warm. absent: Rash Assessment and Plan (1) Pelvic mass Status: Acute (2) Intractable pain Status: Acute (3) Fatigue Status: Chronic (4) Compression fracture of body of thoracic vertebra Status: Chronic (5) Atrial fibrillation Status: Chronic - Assessment and Plan (Free Text) Assessment: 87 year old female with past medical history of arthritis, AR, CAD, pacemaker, on anticoagulation with coumadin who presents via ambulance for generalized weakness and fatigue. Patient found to have pelvic mass with possible mets on Abdominal CT. Patient being evaluated for suspected ovarian neoplasm. Plan: 1. Abdominal Pain - Etiology: suspected ovarian malignancy - Abd CT findings: Pelvic mass with hypodensities in liver, concerning for cancer with metastasis, see report for full detail - Heme/Onc: Dr. Goel - check CA 125 wnl, CEA wnl - discussion with family regarding suspected dx - IR consult with Dr. Woody Blanco, appreciate recs - liver biopsy, will follow up path - repeat liver biopsy, f/u path report - COMPUTATOR with Dr. Medina contacted and discussed [id number], wanting to wait on biopsy results, reach out to if needed - GI with Dr. Sorensen consulted, appreciate recs - wants to f/u biopsy result, cont management - Abdomen/pelvis CT with contrast for further eval 2. Compression fracture T9 - CT/ABD showing compression fracture T9 - Pain distribution related to findings on abd/pelvis CT - Bone scan - compression fractures thoracic and lumbar 3. Atrial Fibrillation - Holding coumadin per Cardio as of now - rate controlled 4. Anemia, Normocytic - Hb of 7.9 this am, close to baseline - Likely anemia of chronic disease - Vb12 wnl, Folate wnl 5. Hx CAD - Holding plavix at this time - will consider renewing - Lipitor 6. Hx of HTN - Metoprolol and Diltiazem 7. Hx of GERD - Protonix 8. Deconditioning/fatigue - PT/OT for further strengthening and conditioning GI ppx: Protonix DVT ppx: SCDs Case and plan was reviewed and discussed in detail with Dr Weber.
--- NOTE | 2017-11-01 13:49 | CT ---
PROCEDURE: CT Abdomen and Pelvis without intravenous contrast HISTORY: abd distention/increase abd tenderness COMPARISON: CT 10/29/2017 TECHNIQUE: Without contrast. Contrast Dose: Radiation dose: Total exam DLP = 319 mGy-cm. This CT exam was performed using one or more of the following dose reduction techniques: Automated exposure control, adjustment of the mA and/or kV according to patient size, and/or use of iterative reconstruction technique. FINDINGS: LOWER THORAX: Small bilateral pleural effusions. LIVER: There is a thin rim of hemorrhage around the liver. This may be subcapsular in location. This measures 6 mm thick and is similar in size to the study performed during biopsy. Several hypodense liver lesions are again demonstrated. GALLBLADDER AND BILE DUCTS: Gallbladder removed PANCREAS: Unremarkable. No gross lesion or ductal dilatation. SPLEEN: Unremarkable. ADRENALS: Unremarkable. No mass. KIDNEYS AND URETERS: Unremarkable. No hydronephrosis. No solid mass. VASCULATURE: Unremarkable. No aortic aneurysm. BOWEL: Unremarkable. No obstruction. No gross mural thickening. APPENDIX: Unremarkable. Normal appendix. PERITONEUM: Unremarkable. No free fluid. No free air. LYMPH NODES: Unremarkable. No enlarged lymph nodes. BLADDER: Unremarkable. REPRODUCTIVE: There is a 6 cm left adnexal cyst. BONES: No acute fracture. OTHER FINDINGS: None. IMPRESSION: Stable appearance of thin subcapsular hematoma
--- NOTE | 2017-11-02 00:04 | PN ---
DATE: 11/01/2017 SUBJECTIVE: This patient was seen and evaluated earlier today. The patient still complain of epigastric discomfort. Poor p.o. intake. PHYSICAL EXAMINATION: VITAL SIGNS: Temperature is 98.3, pulse 76 and blood pressure 115/62. HEENT: Atraumatic. Anicteric. NECK: Supple. HEART: S1 and S2 heard. LUNGS: Bilateral air entry present, reduced. ABDOMEN: Softly distended. There is a tenderness present in the epigastric area. There is no rebound or guarding. EXTREMITIES: No cyanosis. No clubbing. LABORATORY DATA: Hemoglobin 7.9, hematocrit 25.5, WBC 13.2, and platelet 255. BUN 23 and creatinine 0.9. IMPRESSION: This 87-year-old patient admitted with large ovarian mass with hepatic lesion, had a repeat liver biopsy done as the earlier one was nondiagnostic. The patient has drop in blood count, complains of increased abdominal discomfort with poor p.o. intake. Would recommend CT of the abdomen to further evaluate. The patient also has history of constipation on MiraLax. The patient's repeat CT showed small subcapsular hematoma stable. Otherwise unremarkable. The CAT scan was reviewed has also bilateral pleural effusion present. The patient has a distended bladder and the patient has no significant stool in the colon, no fecal impaction now. Appears to be resolved. Would recommend followup of the biopsy report. The patient is on Percocet on a p.r.n. basis for pain and also on MiraLax. Thank you very much for allowing me to participate in the care of your patient. Ari Sorensen MD
[2017-11-02] MEDS: Oxycodone/Acetaminophen 5/325 mg Tab PO PRN (06:39)
[2017-11-02 09:02] LABS: HEMATOCRIT 25.4 % (36.0-48.0); MEAN CELL VOLUME 93.7 fl (80.0-105.0); MEAN CORPUSCULAR HEMOGLOBIN 29.2 pg (25.0-35.0); MEAN CORPUSCULAR HGB CONC 31.1 g/dl (31.0-37.0); MEAN PLATELET VOLUME 9.2 fl (7.0-11.0); RED CELL DISTRIBUTION WIDTH 15.6 % (11.5-14.5); WHITE BLOOD COUNT 14.9 10^3/ul (4.5-11.0)
[2017-11-02 09:10] LABS: BLOOD UREA NITROGEN 26 mg/dL (7-21); CALCIUM 9.3 mg/dL (8.4-10.5); CARBON DIOXIDE 29 mmol/L (21-33); CHLORIDE 97 mmol/L (98-107); GFR AFRICAN-AMERICAN > 60; GLUCOSE,RANDOM 93 mg/dL (70-110); POTASSIUM 4.2 mmol/L (3.6-5.0); SODIUM 131 mmol/L (132-148)
[2017-11-02] MEDS: Pantoprazole 40 mg EC Tab PO SCH (09:49)
[2017-11-02] MEDS: POLYETHYLENE GLYCOL 3350 17 GM/Dose PACKET PO SCH ×3 (09:49→17:22)
[2017-11-02] MEDS: Metoprolol Succinate 100 mg XL Tab PO SCH (09:50)
[2017-11-02] MEDS: diltiaZEM 240 mg/24 Hours CD Cap PO SCH (09:53)
[2017-11-02 10:34] VITALS: O2SAT 98
--- NOTE | 2017-11-02 11:30 | CP.PCM.PN ---
<Nadine Cardenas - Last Filed: 11/02/17 11:29> Subjective - Date & Time of Evaluation Date of Evaluation: 11/02/17 Time of Evaluation: 10:35 - Subjective Subjective: Seen and examined at the bedside earlier this morning, the chart was reviewed. Patient is slightly lethargic but arousable. The patient is reported to have had bowel movement mixed with tear and no reports of overt GI bleed. Patient still has abdominal discomfort that is diffuse to the epigastric area. Patient did not eat breakfast this morning, tray is noted at bedside. Objective - Vital Signs/Intake and Output Vital Signs (last 24 hours): Temp Pulse Resp BP Pulse Ox 98.5 F 73 20 125/58 L 98 11/02/17 07:30 11/02/17 10:11 11/02/17 07:30 11/02/17 09:53 11/02/17 10:11 Intake and Output: 11/02/17 11/02/17 06:59 18:59 Intake Total 420 Output Total 1 Balance 419 - Medications Medications: Current Medications Acetaminophen (Tylenol 325mg Tab) 650 mg PO Q4 PRN PRN Reason: Pain, Mild (1-3) Last Admin: 10/29/17 10:29 Dose: 650 mg Albuterol Sulfate (Albuterol 0.5% Inhal Sonia (2.5 Mg/0.5 Ml) Ud) 2.5 mg IH Q4H PRN PRN Reason: Shortness of Breath Last Admin: 10/31/17 21:53 Dose: 2.5 mg Atorvastatin Calcium (Lipitor) 40 mg PO DIN [facility] Last Admin: 11/01/17 17:59 Dose: 40 mg Diltiazem HCl (Cardizem Cd) 240 mg PO DAILY [facility] Last Admin: 11/02/17 09:53 Dose: 240 mg Docusate Sodium (Colace) 100 mg PO TID [facility] Last Admin: 11/02/17 09:49 Dose: 100 mg Sodium Chloride (Sodium Chloride 0.45%) 1,000 mls @ 75 mls/hr IV .[id number] [facility] Last Admin: 10/30/17 22:50 Dose: 75 mls/hr Metoprolol Succinate (Toprol Xl) 100 mg PO DAILY [facility] Last Admin: 11/02/17 09:50 Dose: 100 mg Ondansetron HCl (Zofran Inj) 4 mg IVP STAT PRN PRN Reason: Nausea/Vomiting Oxycodone/Acetaminophen (Percocet 5/325 Mg Tab) 1 tab PO Q6H PRN PRN Reason: Pain, moderate (4-7) Stop: 11/04/17 18:22 Last Admin: 11/02/17 06:39 Dose: 1 tab Pantoprazole Sodium (Protonix Ec Tab) 40 mg PO DAILY [facility] Last Admin: 11/02/17 09:49 Dose: 40 mg Polyethylene Glycol (Miralax) 17 gm PO TID [facility] Last Admin: 11/02/17 09:49 Dose: 17 gm Ramipril (Altace) 2.5 mg PO DAILY [facility] Last Admin: 11/02/17 09:53 Dose: 2.5 mg Trazodone HCl (Desyrel) 50 mg PO HS [facility] Last Admin: 11/01/17 22:47 Dose: 50 mg - Labs Labs: 11/02/17 08:50 11/02/17 08:50 PT 11.6 SECONDS (9.4-12.5) 10/29/17 07:00 INR 1.05 (0.93-1.08) 10/29/17 07:00 APTT 38.5 Seconds (25.1-36.5) H 10/26/17 06:30 - Constitutional Appears: No Acute Distress - Eye Exam Eye Exam: absent: Scleral icterus - ENT Exam ENT Exam: Mucous Membranes Moist - Neck Exam Neck Exam: Normal Inspection - Respiratory Exam Respiratory Exam: Decreased Breath Sounds, NORMAL BREATHING PATTERN. absent: Respiratory Distress - Cardiovascular Exam Cardiovascular Exam: +S1, +S2 (is) - GI/Abdominal Exam GI & Abdominal Exam: Soft, Tenderness (epigastric), Normal Bowel Sounds. absent : Guarding, Rebound - Extremities Exam Extremities Exam: absent: Calf Tenderness, Pedal Edema - Neurological Exam Neurological Exam: Awake, Oriented x3 - Skin Skin Exam: Dry, Warm Assessment and Plan - Assessment and Plan (Free Text) Assessment: ASSESSMENT: Abdominal Pain Constipation Abnormal CT scan: Pelvic mass /Ovarian mass w/ liver masses possible metastasis. 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 Sorensen. <Ari Sorensen V - Last Filed: 11/02/17 23:26> Objective - Vital Signs/Intake and Output Vital Signs (last 24 hours): Temp Pulse Resp BP Pulse Ox 98.3 F 70 18 151/66 H 98 11/02/17 19:30 11/02/17 19:30 11/02/17 19:30 11/02/17 19:30 11/02/17 10:11 Intake and Output: 11/02/17 11/03/17 18:59 06:59 Intake Total 590 300 Balance 590 300 - Labs Labs: 11/02/17 08:50 11/02/17 08:50 PT 11.6 SECONDS (9.4-12.5) 10/29/17 07:00 INR 1.05 (0.93-1.08) 10/29/17 07:00 APTT 38.5 Seconds (25.1-36.5) H 10/26/17 06:30 Attending/Attestation - Attestation I have personally seen and examined this patient.: Yes I have fully participated in the care of the patient.: Yes I have reviewed all pertinent clinical information, including history, physical exam and plan: Yes Notes (Text): This is an addendum to GI progress report dictated by Nadine Cardenas APN.The patient was seen and examined earlier. Medical records, lab studies, imagings were reviewed. Last 24 hours events reviewed. Agreed with the above treatment plan as outlined in Nadine Cardenas APN's notes the with the addition of the following Still complains of epigastric tenderness but less severe Repeat CT was reviewed small perihepatic hematoma contained Anemia plan Follow the path report Patient was transfused today. Follow up hemoglobin and hematocrit. 11/02/17 23:23
--- NOTE | 2017-11-02 14:18 | CP.PCM.DIS ---
Provider - Provider Date of Admission: 10/25/17 19:24 Attending physician: Colin Noe MD Primary care physician: Colin Noe MD Consults: GI: Dr. Ari Sorensen Cardiology: Dr. Woody Ambrose Heme/Onc: Dr. Shasta mejia IR: Dr. Woody Blanco Palliative care: Dr. Martha Berg Time Spent in preparation of Discharge (in minutes): 30 Diagnosis - Discharge Diagnosis (1) Pelvic mass Status: Acute (2) Intractable pain Status: Acute (3) Fatigue Status: Chronic (4) Compression fracture of body of thoracic vertebra Status: Chronic (5) Atrial fibrillation Status: Chronic Hospital Course - Lab Results Lab Results: Micro Results 10/30/17 04:30 Urine,Clean Catch Urine Culture - Final 50-100,000 CFU/ML. MULTIPLE SPECIES. SUGGEST REPEAT SPECIMEM. Most Recent Lab Values WBC 14.9 10^3/ul (4.5-11.0) H 11/02/17 08:50 RBC 2.71 10^6/uL (3.5-6.1) L 11/02/17 08:50 Hgb 7.9 g/dL (12.0-16.0) L 11/02/17 08:50 Hct 25.4 % (36.0-48.0) L 11/02/17 08:50 MCV 93.7 fl (80.0-105.0) 11/02/17 08:50 MCH 29.2 pg (25.0-35.0) 11/02/17 08:50 MCHC 31.1 g/dl (31.0-37.0) 11/02/17 08:50 RDW 15.6 % (11.5-14.5) H 11/02/17 08:50 Plt Count 254 10^3/uL (120.0-450.0) 11/02/17 08:50 MPV 9.2 fl (7.0-11.0) 11/02/17 08:50 Gran % 78.4 % (50.0-68.0) H 11/01/17 07:00 Lymph % (Auto) 9.9 % (22.0-35.0) L 11/01/17 07:00 [place] % (Auto) 11.0 % (1.0-6.0) H 11/01/17 07:00 Eos % (Auto) 0.6 % (1.5-5.0) L 11/01/17 07:00 Baso % (Auto) 0.1 % (0.0-3.0) 11/01/17 07:00 Gran # 10.33 (1.4-6.5) H 11/01/17 07:00 Lymph # 1.3 (1.2-3.4) 11/01/17 07:00 Carson # 1.5 (0.1-0.6) H 11/01/17 07:00 Eos # 0.1 (0.0-0.7) 11/01/17 07:00 Baso # 0.01 K/mm3 (0.0-2.0) 11/01/17 07:00 PT 11.6 SECONDS (9.4-12.5) 10/29/17 07:00 INR 1.05 (0.93-1.08) 10/29/17 07:00 APTT 38.5 Seconds (25.1-36.5) H 10/26/17 06:30 Sodium 131 mmol/L (132-148) L 11/02/17 08:50 Potassium 4.2 mmol/L (3.6-5.0) 11/02/17 08:50 Chloride 97 mmol/L (98-107) L 11/02/17 08:50 Carbon Dioxide 29 mmol/L (21-33) 11/02/17 08:50 Anion Gap 10 (10-20) 11/02/17 08:50 BUN 26 mg/dL (7-21) H 11/02/17 08:50 Creatinine 0.9 mg/dl (0.7-1.2) 11/02/17 08:50 Est GFR ( Amer) > 60 11/02/17 08:50 Est GFR (Non-Af Amer) 59 11/02/17 08:50 POC Glucose (mg/dL) 149 mg/dL (65-110) H 10/27/17 19:23 Random Glucose 93 mg/dL (70-110) 11/02/17 08:50 Calcium 9.3 mg/dL (8.4-10.5) 11/02/17 08:50 Phosphorus 4.0 mg/dL (2.5-4.5) 10/25/17 17:20 Magnesium 1.9 mg/dL (1.7-2.2) 10/25/17 17:20 Iron 39 ug/dL (45-180) L 10/26/17 06:30 TIBC 346 ug/dL (265-497) 10/26/17 06:30 % Saturation 11 % (20-55) L 10/26/17 06:30 Transferrin 277.96 mg/dL (206-381) 10/26/17 06:30 Ferritin 46.1 ng/mL 10/26/17 06:30 Total Bilirubin 0.7 mg/dL (0.2-1.3) 11/01/17 07:00 AST 69 U/L (14-36) H D 11/01/17 07:00 ALT 67 U/L (7-56) H 11/01/17 07:00 Alkaline Phosphatase 229 U/L (38-126) H 11/01/17 07:00 Troponin I < 0.01 ng/mL 10/25/17 17:20 Total Protein 6.4 g/dL (5.8-8.3) 11/01/17 07:00 Albumin 2.8 g/dL (3.0-4.8) L 11/01/17 07:00 Globulin 3.6 gm/dL 11/01/17 07:00 Albumin/Globulin Ratio 0.8 (1.1-1.8) L 11/01/17 07:00 Lipase 344 U/L (23-300) H 10/25/17 17:20 Carcinoembryonic Ag 2.2 ng/mL (0.0-3.0) 10/26/17 10:18 CA 125 Antigen 16.5 U/mL (0-35) 10/26/17 10:23 Vitamin B12 329 pg/mL (239-931) 10/26/17 06:30 Folate > 20.0 ng/mL 10/26/17 06:30 Procalcitonin 0.08 NG/ML (0.19-0.49) L 10/26/17 06:30 Urine Color Yellow (YELLOW) 10/29/17 10:31 Urine Appearance Turbid (CLEAR) 10/29/17 10:31 Urine pH 6.5 (4.7-8.0) 10/29/17 10:31 Ur Specific [place] 1.025 (1.005-1.035) 10/29/17 10:31 Urine Protein 30 mg/dL (<30 mg/dL) H 10/29/17 10:31 Urine Glucose (UA) Negative mg/dL (NEGATIVE) 10/29/17 10:31 Urine Ketones Trace mg/dL (NEGATIVE) H 10/29/17 10:31 Urine Blood Large (NEGATIVE) H 10/29/17 10:31 Urine Nitrate Negative (NEGATIVE) 10/29/17 10:31 Urine Bilirubin Small (NEGATIVE) H 10/29/17 10:31 Urine Urobilinogen 1.0 E.U./dL (<1 E.U./dL) H 10/29/17 10:31 Ur Leukocyte Esterase Small Mango/uL (NEGATIVE) H 10/29/17 10:31 Urine RBC 1 - 3 /hpf (0-2) 10/29/17 10:31 Urine WBC 0 - 2 /hpf (0-6) 10/29/17 10:31 Urine Bacteria Many (NEG) 10/29/17 10:31 Stool Occult Blood Negative (NEGATIVE) 10/29/17 10:31 Hepatitis A IgM Ab Negative (NEGATIVE) 10/28/17 06:30 Hep Bs Antigen Negative (NEGATIVE) 10/28/17 06:30 Hep B Core IgM Ab Negative (NEGATIVE) 10/28/17 06:30 Hepatitis C Antibody Negative (NEGATIVE) 10/28/17 06:30 Blood Type O POSITIVE 11/02/17 10:15 Blood Type Confirm O POSITIVE 11/02/17 11:20 Antibody Screen Negative 11/02/17 10:15 Crossmatch See Detail 11/02/17 10:15 BBK History Checked No verified bt 11/02/17 10:15 - Hospital Course Hospital Course: 87 year old female with past medical history of arthritis, NC, CAD, pacemaker, on anticoagulation with coumadin presented via ambulance for generalized weakness and fatigue and abdominal pain. Patient reported that for the past year she has been experiencing body pains most notably in the hip and lower/mid back that has inhibited her ability to walk to her PMD office visit for her routine INR check. Patient reported poor appetite without nausea and vomiting for an extended period of time as well as irregular bowel movements. Patient presented to ED wtih mild leukocytosis. Abdominal CT done in ED showed 7.1x5.1cm pelvic mass with hypodensities in liver, concerning for malignancy with suggested metastases. Patient admitted to medicine service for abdominal pain secondary to constipation vs mets from pelvic mass with suspicion for neoplasm. T9 compression fracture was also noted on CT with subsequent bone scan on 10/27 showing foci of increased uptake of mid and lower thoracic spine and lumbar spine consistent with compression fractures age indeterminate. Heme/Onc, GI, IR , Cardiology and Palliative Care consults were placed and recommendations were appreciated throughout hospital course. Dr. Woody Blanco from IR conducted two CT guided liver biopsies on 10/27/17 and repeat biopsy on 10/29/17 and sent specimen to pathology- results pending upon discharge. Heme/onc recommended CEA/ CA 125, both of which were wnl. Heme/Onc also recommended following up liver biopsy results for potential changes in medical management. GI recommended continued medical management with plans for resolution of constipation as evident by abdominal CT as well as repeat CT abdomen for abdominal pain status post Liver biopsy which showed a stable subscapular hematoma and recommended monitoring LFTs, H&H, continue previous recommendations. Palliative Care was consulted and met with the family, as a result an advance care directive plan was conducted with family. POLST completed by daughter. As a result of discussions with patient and family patient was made DNR/DNI. Patient was accepted to [facility] for continued physical therapy rehabilitation and medical management of current medical conditions. Patient was noted to be hemodynamically stable, normothermic, euvolemic and appropriate for discharge with planned follow up. Discharge planning, medications, and outpatient follow up were discussed with patient and family, all were in understanding and in agreement. - Date & Time of H&P Date of H&P: 10/25/17 Time of H&P: 20:18 Discharge Exam - Head Exam Head Exam: ATRAUMATIC, NORMAL INSPECTION, NORMOCEPHALIC - Eye Exam Eye Exam: EOMI, PERRL Pupil Exam: PERRL Additional comments: conjunctival pallor - ENT Exam ENT Exam: Mucous Membranes Dry - Respiratory Exam Respiratory Exam: Clear to PA & Lateral, NORMAL BREATHING PATTERN - Cardiovascular Exam Cardiovascular Exam: Irregular Rhythm, +S1, +S2 - GI/Abdominal Exam GI & Abdominal Exam: Normal Bowel Sounds, Soft, Tenderness (RUQ) - Back Exam Back exam: paraspinal tenderness (thoracic and lumbar bilateral ), vertebral tenderness (thoracic vertebrae T8-T10) - Neurological Exam Neurological exam: Alert, Oriented x3 - Psychiatric Exam Psychiatric exam: Normal Affect, Normal Mood - Skin Skin Exam: Dry, Intact Discharge Plan - Follow Up Plan Condition: FAIR Disposition: REHAB FACILITY/REHAB UNIT Additional Instructions: Follow up with heme/onc with Dr. Goel outpatient with in 1 week from rehab facility Follow up with gastroenterology with Dr. Sorensen outpatient with in 1-2 weeks from rehab facility Follow up with primary medical doctor within 2-3 days upon discharge from rehab facility Follow up liver biopsy results with PMD upon discharge Take medications as prescribed to you Return to hospital if symptoms worsen or return upon discharge from rehab Referrals: Colin Noe MD [Primary Care Provider] - Shasta Mejia MD [Staff Provider] - Ari Sorensen MD [Medical Doctor] -
[2017-11-02 16:25] VITALS: RESP 18
[2017-11-02 19:31] VITALS: BP 151/66; PULSE 70; TEMP 98.3
--- NOTE | 2017-11-02 20:29 | PN ---
DATE: 11/02/2017 SUBJECTIVE: The patient is lethargic, somnolent, unable to answer any questions, but does appear to be in pain. PHYSICAL EXAMINATION: VITAL SIGNS: Reveal a temperature of 97.3, pulse of 68, respiratory rate of 16 and a blood pressure of 140/66. GENERAL: The patient is an elderly female, lying in bed, in mild distress secondary to pain. HEENT: Head and neck; normocephalic and atraumatic. Eyes; pupils equal, round, reactive to light and accommodation. Extraocular muscles are intact. There is pallor. No icterus is noted. NECK: Supple with no adenopathy. No JVD. No thyromegaly. LUNGS: Decreased breath sounds bilaterally secondary to poor effort. CARDIOVASCULAR: S1 and S2 are heard. She is tachycardic. ABDOMEN: Positive bowel sounds. Soft. Marked tenderness throughout the abdomen, but without any rebound or guarding. EXTREMITIES: There is mild edema. LABORATORY DATA: Her labs reveal a white count of 14.9, hemoglobin 7.9, hematocrit 25.4, MCV of 93.7 and platelet count of 254. Chemistries are within normal limits. ASSESSMENT AND PLAN: An elderly female with a ovarian mass as well as liver nodules. Initial CT-guided liver biopsy was negative. She had repeat biopsy done on Wednesday, results of which are still pending. I will discuss with the patient's family, but it looks like at this point, they would only prefer comfort care for this elderly patient with a poor performance status and markedly advanced disease, which I am in agreement with as her prognosis is extremely poor considering her stage and age. Thank you for the consult. We will follow. Shasta Quintero MD
--- NOTE | 2017-11-09 07:49 | PQF GENQUE ---
This form is a permanent part of the medical record Dr. Quinetro, We just received the external pathology report for the second liver bx done on 10/29/17. 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 Please clarify if this is primary or secondary site and indicate your response below. Thank you. Clarification of your documentation is requested to better reflect the severity of illness and intensity of treatment of your patient. Indicators present [] Specify: [] [] Specify: [] [] Specify: [] [] Specify: [] Location in the medical record that reflects the above clinical findings: [x] external pathology report Treatment Provided: [] PHYSICIAN'S RESPONSE Based on your medical judgment of the clinical indicators outlined above please clarify the following: [] Practitioner response [] If unable to determine, please check the box, sign and date. Present On Admission (POA) Indicator: [] Present at the time of admission [] Not present at the time of admission [] Clinically Undetermined In responding to this query, please exercise your independent professional judgment. The fact that a question is asked does not imply that any particular answer is desired or expected. Thank you for your clarification on this documentation. If you have any questions please call:[ ] * Thank you, [ ]elena PADRONstreetsweeper operator [email or web address]
== END 2017-11-02 22:48 | DRG 755 ==
LOC: ED 16:08 → ERH 19:24 → 5RSO 21:25
PROVIDERS: ADMIT Internal Medicine; ATTEND Internal Medicine
PROC: 0FB13ZX Excision of Right Lobe Liver, Percutaneous Approach, Diagnostic (ICD-10-PCS; 2017-10-27)
PROC: 0FB23ZX Excision of Left Lobe Liver, Percutaneous Approach, Diagnostic (ICD-10-PCS; principal; 2017-10-29 18:00)
PROC: 30233N1 Transfusion of Nonautologous Red Blood Cells into Peripheral Vein, Percutaneous Approach (ICD-10-PCS; 2017-11-02)
DX: C56.9 Malignant neoplasm of unspecified ovary (principal); C78.7 Secondary malignant neoplasm of liver and intrahepatic bile duct; J90 Pleural effusion, not elsewhere classified; M48.54XA Collapsed vertebra, not elsewhere classified, thoracic region, initial encounter for fracture; I48.2 Chronic atrial fibrillation; R16.0 Hepatomegaly, not elsewhere classified; D63.8 Anemia in other chronic diseases classified elsewhere; M19.90 Unspecified osteoarthritis, unspecified site; I10 Essential (primary) hypertension; I25.118 Atherosclerotic heart disease of native coronary artery with other forms of angina pectoris; K59.00 Constipation, unspecified; G89.29 Other chronic pain; E78.00 Pure hypercholesterolemia, unspecified; Z66 Do not resuscitate; K21.9 Gastro-esophageal reflux disease without esophagitis; R53.83 Other fatigue; R53.1 Weakness; I25.2 Old myocardial infarction; Z87.891 Personal history of nicotine dependence; Z95.0 Presence of cardiac pacemaker; Z79.01 Long term (current) use of anticoagulants; Z95.5 Presence of coronary angioplasty implant and graft